=== PATIENT | male | born 1975 | race Caucasian/White ===

== ENCOUNTER 2020-08-06 09:40 | Emergency (ER) | payer OTHER, SELFPAY ==
[~2020-08-06] VITALS: Ht 182.9 cm; Wt 99.6 kg
[2020-08-06 09:40] VITALS: BP 133/97
[2020-08-06] MEDS ORDERED: LORA-622 PO (09:48)
[2020-08-06] MEDS ORDERED: HYDR-3490 PO (09:48)
[2020-08-06] MEDS ORDERED: AMLO1TAB25 PO (09:48)
--- NOTE | 2020-08-06 10:42 | REP ---
INDICATION: fell skiing COMPARISON: None. TECHNIQUE: AP, lateral, bilateral oblique and sunrise views. FINDINGS: Mild degenerative changes are appreciated. Lateral view suggests a suprapatellar effusion. No obvious acute fracture or dislocation identified. IMPRESSION: Mild tricompartmental arthritic changes. Possible suprapatellar effusion. No obvious acute fracture or dislocation. <Electronically signed by London Wade > 08/06/20 1038
== END 2020-08-06 11:26 | disposition home or self-care (01) ==
LOC: M ED 09:40
DX: S83.421A Sprain of lateral collateral ligament of right knee, initial encounter (principal); V00.321A Fall from snow-skis, initial encounter; Y92.828 Other wilderness area as the place of occurrence of the external cause; Y93.23 Activity, snow (alpine) (downhill) skiing, snowboarding, sledding, tobogganing and snow tubing; Y99.9 Unspecified external cause status; M25.461 Effusion, right knee; M17.11 Unilateral primary osteoarthritis, right knee; I10 Essential (primary) hypertension; Z79.899 Other long term (current) drug therapy

== ENCOUNTER → 2020-12-24 | Outpatient (CLI) | payer OTHER ==
[~2020-12-24] MED LIST: ACET-683 PO; AMLO1TAB25; AMLO1TAB25 PO; HYDR-3490; HYDR-3490 PO; LORA-622 PO; LORA-674
== END ==
LOC: M WUC 15:06 → MERGE 15:06
PROVIDERS: ATTEND Physician Assistant
DX: M54.12 Radiculopathy, cervical region (principal); M54.41 Lumbago with sciatica, right side

== ENCOUNTER → 2021-04-12 | Outpatient (CLI) | payer OTHER | LOC: MERGE 10:40 → M LABSMTC 11:02 | PROVIDERS: ATTEND Anesthesiology | DX: Z01.812 Encounter for preprocedural laboratory examination (principal); Z20.822 Contact with and (suspected) exposure to COVID-19 ==

== ENCOUNTER 2021-04-16 08:22 | Day surgery (SDC) | payer OTHER ==
[~2021-04-16] VITALS: Ht 185.4 cm; Wt 102.7 kg
[~2021-04-16 08:22] MED LIST changes: +LIDOCAINE 2% 100MG/5ML SDV (FOR ANES.) As Ordered ONE; +NS 1,000 ML IV ONE; +propofoL 200 MG/20 ML VIAL As Ordered ONE
--- OUTSIDE RECORDS SUMMARY | 2021-04-16 08:28 | CCD | Continuity of Care Document ---
Author Author Adonis DOOLEY RPA-C Organization Unknown Address [address] [facility], [address] [place] [address] Phone [phone] Care Team Providers Care Clam Dredger Name Role Phone Bashir Gallardo MD @ [facility] Int AUTM Problems Active Problems Provider Date Essential hypertension Tamica Bass ANGIE Dooley Onset: Social History Type Date Description Comments Sex Unknown ETOH Use Denies alcohol use Tobacco Use Start: Unknown Non Smoker Allergies, Adverse Reactions, Alerts Description No Known Drug Allergies Medications Active Medications SIG Qnty Indications Ordering Provide r Date Sutab [id number] Tablets take tablets as directed per doctor for bowel prep. 1kit Z12.11 Dayday corbin MD 03/03/[address] take 4 tabs by mouth prior to procedure per instructions. 4tabs Z12.11 Dayday El MD 03/03/2021 Hydrochlorothiazide 25mg Tablets 1tab qd Unknown Loratadine 10mg Capsules 1cap qd Unknown Amlodipine Besylate 10mg Tablets 1tab qd Unknown Immunizations Description No Information Available Vital Signs Date Vital Result Comment 03/03/2021 12:54pm BP Systolic 142 mmHg BP Diastolic 92 mmHg Height 73 inches 6'1" Weight 227.00 lb BMI (Body Mass Index) 29.9 kg/m2 [place] Body Weight 184 lb Weight 102.967 kg BSA (Body Surface Area) 2.27 m2 Results Description No Information Available Procedures Description No Information Available Medical Devices Description No Information Available Encounters Description No Information Available Assessments Date Code Description Provider 03/03/2021 Z12.11 Encounter for screening for jade gnant neoplasm of colon ANGIE Barbosa 03/03/2021 Z80.0 Family history of malignant neop lasm of digestive organs ANGIE Barbosa Plan of Treatment 03/03/2021 - Tamica Kali ANGIE Dooley* Z12.11 Encounter for screening for malignant neoplasm of colon * Z80.0 Family history of malignant neoplasm of digestive organs * * New Medication:* Sutab [id number] mg * Dulcolax 5 mg * New Orders:* Colonoscopy, Ordered: 03/03/21 * Comments:* Will arrange for colonoscopy. Reviewed risks and benefits of the procedure, as well as other options, with the patient. Bowel prep procedure was discussed with patient, as well as risks and side effects associated with the bowel prep. Patient verbalized understanding of all of the above and is in agreement to proceed. Patient will seek medical attention for any acute changes. Will monitor. * Follow up:* As scheduled, sooner if needed. Functional Status Description No Information Available Mental Status Description No Information Available Referrals Refer to Reason for Referral Status Appt Date Eloy Garrido M.D. COLO SCREENING Scheduled 02/17 [facility] [address] [facility], [address] [place] [address] [phone]
--- OUTSIDE RECORDS SUMMARY | 2021-04-16 08:28 | CCD | Continuity of Care Document ---
Author Author Adonis BOLAND P.A. Organization Unknown Address [address] [place] [address], [facility] [address] [place] [address] Phone [phone] Care Team Providers Care Payment Manager Name Role Phone Bashir Gallardo MD AUTM [phone] Dea Foreman AUTM [phone] Problems Description No Information Available Social History Type Date Description Comments Sex Unknown Allergies, Adverse Reactions, Alerts Description No Information Available Medications Active Medications SIG Qnty Indications Ordering Provide r Date Amlodipine Besylate 10mg Tablets Bashir Gallardo MD Hydrochlorothiazide 25mg Tablets Bashir Gallardo MD Loratadine 10mg Tablets Bashir Gallardo MD Immunizations Description No Information Available Vital Signs Date Vital Result Comment 08/07/2020 3:41pm Body Temperature 97.8 F Height 73 inches 6'1" Weight 220.00 lb BMI (Body Mass Index) 29.0 kg/m2 Results Description No Information Available Procedures Date Code Description Status 02/23/2021 27062 Office/Outpatient Established Lo w MDM 20-29 Min Completed 01/21/2021 10766 Physical Therapy Eval - Low Comp lexity Completed 01/05/2021 20769 Office/Outpatient Established Lo w MDM 20-29 Min Completed 11/24/2020 70439 Office/Outpatient Established SF MDM 10-19 Min Completed 11/19/2020 26435 Therapeutic Procedure, Each 15 M inutes Completed 11/19/2020 04852 Therapeutic Procedure, Each 15 M inutes Completed 11/11/2020 65613 Therapeutic Procedure, Each 15 M inutes Completed 11/11/2020 63973 Therapeutic Procedure, Each 15 M inutes Completed 11/11/2020 45979 Hot Or Cold Packs Completed 11/09/2020 04040 Therapeutic Procedure, Each 15 M inutes Completed 11/09/2020 37702 Therapeutic Procedure, Each 15 M inutes Completed 11/04/2020 69811 Therapeutic Procedure, Each 15 M inutes Completed 11/04/2020 62006 Therapeutic Procedure, Each 15 M inutes Completed 10/30/2020 65905 Therapeutic Procedure, Each 15 M inutes Completed 10/30/2020 74008 Therapeutic Procedure, Each 15 M inutes Completed 10/28/2020 39190 Therapeutic Procedure, Each 15 M inutes Completed 10/28/2020 32999 Therapeutic Procedure, Each 15 M inutes Completed 10/28/2020 98077 X-Ray Knee Complete W/Obliques & Tunnel And/Or Standing Views Completed 10/23/2020 46752 Therapeutic Procedure, Each 15 M inutes Completed 10/23/2020 69049 Therapeutic Procedure, Each 15 M inutes Completed 10/19/2020 60206 Therapeutic Procedure, Each 15 M inutes Completed 10/19/2020 47181 Therapeutic Procedure, Each 15 M inutes Completed 10/15/2020 49679 Therapeutic Procedure, Each 15 M inutes Completed 10/15/2020 65647 Therapeutic Procedure, Each 15 M inutes Completed 10/15/2020 46937 Hot Or Cold Packs Completed 10/12/2020 83268 Therapeutic Procedure, Each 15 M inutes Completed 10/12/2020 03567 Therapeutic Procedure, Each 15 M inutes Completed 10/08/2020 06493 Therapeutic Procedure, Each 15 M inutes Completed 10/08/2020 24973 Therapeutic Procedure, Each 15 M inutes Completed 10/08/2020 62824 Hot Or Cold Packs Completed 10/06/2020 41135 Therapeutic Procedure, Each 15 M inutes Completed 10/06/2020 09226 Therapeutic Procedure, Each 15 M inutes Completed 10/01/2020 85065 Therapeutic Procedure, Each 15 M inutes Completed 10/01/2020 95521 Therapeutic Procedure, Each 15 M inutes Completed 10/01/2020 45265 Hot Or Cold Packs Completed 09/30/2020 88275 X-Ray Knee Complete W/Obliques & Tunnel And/Or Standing Views Completed 09/28/2020 73454 Therapeutic Procedure, Each 15 M inutes Completed 09/28/2020 48786 Hot Or Cold Packs Completed 09/25/2020 24040 Therapeutic Procedure, Each 15 M inutes Completed 09/23/2020 48611 Therapeutic Procedure, Each 15 M inutes Completed 09/23/2020 02008 Hot Or Cold Packs Completed 09/16/2020 90699 Physical Therapy Eval - Low Comp lexity Completed Medical Devices Description No Information Available Encounters Type Date Location Provider Dx Diagnosis Office Visit 02/23/2021 3:00p Daljit Boland P.A. M51.36 Other intervertebral disc degeneration, lumbar region M50.30 Other cervical disc degenera tion, unsp cervical region Office Visit 01/05/2021 2:30p Daljit Boland P.A. M51.36 Other intervertebral disc degeneration, lumbar region M54.2 Cervicalgia Office [place] 11[place]24[place] Nond[place] fx of lateral condyle of r tibia, 7thD Office Visit 10/28/2020 9:[place] S[place].124D Nondisp fx of lateral condyle of r tibia, 7thD Office Visit 09/30/2020 8:30a [place] ZACARIAS Guido S82.124D Nondisp fx of lateral condyle of r tibia, 7thD Assessments Date Code Description Provider 02/23/2021 M51.36 Other intervertebral disc degene ration, lumbar region Rick Boland, P.A. 02/23/2021 M50.30 Other cervical disc degeneration , unspecified cervical region Rick Boland, P.A. 01/21/2021 M51.36 Other intervertebral disc degene ration, lumbar region Leda Jones, [facility] 01/21/2021 M54.2 Cervicalgia Leda Jones , MSPT 01/05/2021 M51.36 Other intervertebral disc degene ration, lumbar region Rick Boland, P.A. 01/05/2021 M54.2 Cervicalgia Rick licona P.A. 11/27/2020 S82.124D Nondisplaced fractur e of lateral condyle of right tibia, subsequent encounter for closed fracture with routine healing Leda Jones, LINDAT 11/24/2020 S82.124D Nondisplaced fractur e of lateral condyle of right tibia, subsequent encounter for closed fracture with routine healing Theodore Aceves, ZACARIAS 11/19/2020 S82.124D Nondisplaced fractur e of lateral condyle of right tibia, subsequent encounter for closed fracture with routine healing Danamarie Ortolano, MARINE DIVER 11/11/2020 S82.124D Nondisplaced fractur e of lateral condyle of right tibia, subsequent encounter for closed fracture with routine healing Ava Brand, MARINE DIVER 11/09/2020 S82.124D Nondisplaced fractur e of lateral condyle of right tibia, subsequent encounter for closed fracture with routine healing Ava Brand, MARINE DIVER 11/04/2020 S82.124D Nondisplaced fractur e of lateral condyle of right tibia, subsequent encounter for closed fracture with routine healing Danamarie Ortolano, MARINE DIVER 10/30/2020 S82.124D Nondisplaced fractur e of lateral condyle of right tibia, subsequent encounter for closed fracture with routine healing Danamarie Ortolano, MARINE DIVER 10/28/2020 S82.124D Nondisplaced fractur e of lateral condyle of right tibia, subsequent encounter for closed fracture with routine healing Clary Scee P.T.A. 10/28/2020 S82.124D Nondisplaced fractur e of lateral condyle of right tibia, subsequent encounter for closed fracture with routine healing Theodore Aceves, ZACARIAS 10/23/2020 S82.124D Nondisplaced fractur e of lateral condyle of right tibia, subsequent encounter for closed fracture with routine healing Ava Brand, MARINE DIVER 10/19/2020 S82.124D Nondisplaced fractur e of lateral condyle of right tibia, subsequent encounter for closed fracture with routine healing Clary Scee P.T.A. 10/15/2020 S82.124D Nondisplaced fractur e of lateral condyle of right tibia, subsequent encounter for closed fracture with routine healing Clary Scee P.T.A. 10/12/2020 S82.124D Nondisplaced fractur e of lateral condyle of right tibia, subsequent encounter for closed fracture with routine healing Clary Scee P.T.A. 10/08/2020 S82.124D Nondisplaced fractur e of lateral condyle of right tibia, subsequent encounter for closed fracture with routine healing Clary Scee P.T.A. 10/06/2020 S82.124D Nondisplaced fractur e of lateral condyle of right tibia, subsequent encounter for closed fracture with routine healing Clary Scee P.T.A. 10/01/2020 S82.124D Nondisplaced fractur e of lateral condyle of right tibia, subsequent encounter for closed fracture with routine healing Leda Jones, HAWA 09/30/2020 S82.124D Nondisplaced fractur e of lateral condyle of right tibia, subsequent encounter for closed fracture with routine healing ZACARIAS Guido 09/30/2020 S82.124D Nondisplaced fractur e of lateral condyle of right tibia, subsequent encounter for closed fracture with routine healing ZACARIAS Guido 09/28/2020 S82.124D Nondisplaced fractur e of lateral condyle of right tibia, subsequent encounter for closed fracture with routine healing Clary Scee P.T.A. 09/25/2020 S82.124D Nondisplaced fractur e of lateral condyle of right tibia, subsequent encounter for closed fracture with routine healing Francesca Nayka, MICHELE 09/23/2020 S82.124D Nondisplaced fractur e of lateral condyle of right tibia, subsequent encounter for closed fracture with routine healing Clary Scee P.T.A. 09/16/2020 S82.124D Nondisplaced fractur e of lateral condyle of right tibia, subsequent encounter for closed fracture with routine healing HAWA Ugalde Plan of Treatment Future Appointment(s):* 04/07/2021 2:15 pm - Shane Rodas at [place] Functional Status Description No Information Available Mental Status Description No Information Available Referrals Refer to Dr Reason for Referral Status Appt Date Mcelheran, Rick K, PA Physical Therapy Lumbar Neck , per Chiquita gleason auth req and no pre determination recommended. pt is allowed 80 visits per calendar year and has used 0,$25 copay, patient is going to [facility], passed to PT dept. Created [address] [place] [address] [phone] Rick Boland PA MRI APPROVED PER KAYLEEN Hodge FOR MRI CERVICAL (02729) AND LUMBAR (85470) SPINE TO IVETTE THOMAS Created [facility] [place] [address] [phone] Theodore Aceves I, Pac DME PER BILL AT R NO AUTH REQUIRED FOR SHORT RUNNER (L1833) AND COVERED AT 100% TO GINI ROTH CALL REF #[id number] Created [facility] [address] [address] [phone] Theodore Aceves I, Pac PT BASED ON MED. [facility] AFTER 25TH VISITS NEEDS MEDICAL DOCUMENTATION AND THEY HAVE A $25 COPAY TO PT DEPT. NT Created [facility] [address] [address] [phone]
--- OUTSIDE RECORDS SUMMARY | 2021-04-16 08:28 | CCD | Continuity of Care Document ---
Author Author Adonis DOOLEY RPA-C Organization Unknown Address [address] [facility] [facility], [address] [place] [address] Phone [phone] Care Team Providers Care Transition Rn Name Role Phone Bashir Gallardo MD @ [facility] Int AUTM Problems Active Problems Provider Date Essential hypertension Tamica Bass ANGIE Dooley Onset: Social History Type Date Description Comments Sex Unknown ETOH Use Denies alcohol use Tobacco Use Start: Unknown Non Smoker Allergies, Adverse Reactions, Alerts Description No Known Drug Allergies Medications Active Medications SIG Qnty Indications Ordering Provide r Date Sutab [id number] Tablets take tablets as directed per doctor [...] lb BMI (Body Mass Index) 29.9 kg/m2 [place] Body Weight 184 lb Weight 102.967 kg [...] digestive organs * * New Medication:* Sutab 7518-750-552 mg * Dulcolax 5 mg * New [...] Eloy Garrido M.D. COLO SCREENING Scheduled 02/17 [facility] [address], [address] [place] [address] [phone]
--- OUTSIDE RECORDS SUMMARY | 2021-04-16 08:28 | CCD | Continuity of Care Document ---
Author Author Adonis BOLAND P.A. Organization Unknown Address [address] [place] [address], [facility] [address] [place] [address] Phone [phone] Care Team Providers Care Retirement Sales Consultant Name Role Phone Bashir Gallardo MD AUTM [phone] Dea Foreman AUTM [phone] Problems Description No Information Available Social History [...] Available Procedures Date Code Description Status 02/23/2021 50298 Phone Evaluation/Management Phys ician 11-20 Mins Completed 01/21/2021 12711 Physical Therapy Eval - Low Comp lexity Completed 01/05/2021 37759 Office/Outpatient Established Lo w MDM 20-29 Min Completed 11/24/2020 12305 Office/Outpatient Established SF MDM 10-19 Min Completed 11/19/2020 94083 Therapeutic Procedure, Each 15 M inutes Completed 11/19/2020 90849 Therapeutic Procedure, Each 15 M inutes Completed 11/11/2020 46143 Therapeutic Procedure, Each 15 M inutes Completed 11/11/2020 51893 Therapeutic Procedure, Each 15 M inutes Completed 11/11/2020 68249 Hot Or Cold Packs Completed 11/09/2020 17925 Therapeutic Procedure, Each 15 M inutes Completed 11/09/2020 44337 Therapeutic Procedure, Each 15 M inutes Completed 11/04/2020 11279 Therapeutic Procedure, Each 15 M inutes Completed 11/04/2020 20559 Therapeutic Procedure, Each 15 M inutes Completed 10/30/2020 41738 Therapeutic Procedure, Each 15 M inutes Completed 10/30/2020 40293 Therapeutic Procedure, Each 15 M inutes Completed 10/28/2020 89302 Therapeutic Procedure, Each 15 M inutes Completed 10/28/2020 14341 Therapeutic Procedure, Each 15 M inutes Completed 10/28/2020 73527 X-Ray Knee Complete W/Obliques & Tunnel And/Or Standing Views Completed 10/23/2020 47714 Therapeutic Procedure, Each 15 M inutes Completed 10/23/2020 89447 Therapeutic Procedure, Each 15 M inutes Completed 10/19/2020 41696 Therapeutic Procedure, Each 15 M inutes Completed 10/19/2020 63003 Therapeutic Procedure, Each 15 M inutes Completed 10/15/2020 11779 Therapeutic Procedure, Each 15 M inutes Completed 10/15/2020 27374 Therapeutic Procedure, Each 15 M inutes Completed 10/15/2020 08151 Hot Or Cold Packs Completed 10/12/2020 03623 Therapeutic Procedure, Each 15 M inutes Completed 10/12/2020 16332 Therapeutic Procedure, Each 15 M inutes Completed 10/08/2020 35563 Therapeutic Procedure, Each 15 M inutes Completed 10/08/2020 69153 Therapeutic Procedure, Each 15 M inutes Completed 10/08/2020 50500 Hot Or Cold Packs Completed 10/06/2020 21278 Therapeutic Procedure, Each 15 M inutes Completed 10/06/2020 30039 Therapeutic Procedure, Each 15 M inutes Completed 10/01/2020 86445 Therapeutic Procedure, Each 15 M inutes Completed 10/01/2020 64824 Hot Or Cold Packs Completed 10/01/2020 05677 Therapeutic Procedure, Each 15 M inutes Completed 09/30/2020 55021 X-Ray Knee Complete W/Obliques & Tunnel And/Or Standing Views Completed 09/28/2020 80940 Therapeutic Procedure, Each 15 M inutes Completed 09/28/2020 55440 Hot Or Cold Packs Completed 09/25/2020 95128 Therapeutic Procedure, Each 15 M inutes Completed 09/23/2020 67293 Therapeutic Procedure, Each 15 M inutes Completed 09/23/2020 22493 Hot Or Cold Packs Completed 09/16/2020 82390 Physical Therapy Eval - Low Comp lexity Completed 09/02/2020 50771 X-Ray Knee Complete W/Obliques & Tunnel And/Or Standing Views Completed Medical Devices Description No Information Available Encounters Type Date Location Provider Dx Diagnosis Office Visit 02/23/2021 3:00p Daljit Boland P.A. M51.36 Other intervertebral disc degeneration, lumbar region M50.30 Other cervical disc degenera tion, unsp cervical region Office Visit 01/05/2021 2:30p Daljit Boland P.A. M51.36 Other intervertebral disc degeneration, lumbar region M54.2 Cervicalgia Office Visit 11/24/2020 2:[place]p [place] S82.124D Nondisp fx of lateral condyle of r tibia, 7thD Office Visit 10/28/2020 9:15a [place] S82.124D Nondisp fx of lateral condyle of r tibia, 7thD Office Visit 09/30/2020 8:30a [place] S82.124D Nondisp fx of lateral condyle of r tibia, 7thD Office Visit 09/02/2020 8:45a [place] S82.124D Nondisp fx of lateral condyle of r tibia, 7thD Assessments Date Code Description Provider 02/23/2021 M51.36 Other intervertebral disc degene ration, lumbar region Rick Boland P.A. 02/23/2021 M50.30 Other cervical disc degeneration , unspecified cervical region Kristopher RodasA. 01/21/2021 M51.36 Other intervertebral disc degene ration, lumbar region Leda Jones, [facility] 01/21/2021 M54.2 Cervicalgia Leda Jones , MSPT 01/05/2021 M51.36 Other intervertebral disc degene ration, lumbar region Rick Boland, P.A. 01/05/2021 M54.2 Cervicalgia Rick licona, P.A. 11/27/2020 S82.124D Nondisplaced fractur e of lateral condyle of right tibia, subsequent encounter for closed fracture with routine healing Leda Jones, MSPT 11/24/2020 S82.124D Nondisplaced fractur e of lateral condyle of right tibia, subsequent encounter for closed fracture with routine healing Theodore Aceves, PA 11/19/2020 S82.124D Nondisplaced fractur e of lateral condyle of right tibia, subsequent encounter for closed fracture with routine healing Danamarie Ortolano, MEDICAL SALES SPECIALIST 11/11/2020 S82.124D Nondisplaced fractur e of lateral condyle of right tibia, subsequent encounter for closed fracture with routine healing Ava Brand, MEDICAL SALES SPECIALIST 11/09/2020 S82.124D Nondisplaced fractur e of lateral condyle of right tibia, subsequent encounter for closed fracture with routine healing Ava Brand, MEDICAL SALES SPECIALIST 11/04/2020 S82.124D Nondisplaced fractur e of lateral condyle of right tibia, subsequent encounter for closed fracture with routine healing Danamarie Ortolano, MEDICAL SALES SPECIALIST 10/30/2020 S82.124D Nondisplaced fractur e of lateral condyle of right tibia, subsequent encounter for closed fracture with routine healing Danamarie Ortolano, MEDICAL SALES SPECIALIST 10/28/2020 S82.124D Nondisplaced fractur e of lateral condyle of right tibia, subsequent encounter for closed fracture with routine healing Clary Boone P.T.A. 10/28/2020 S82.124D Nondisplaced fractur e of lateral condyle of right tibia, subsequent encounter for closed fracture with routine healing Theodore Aceves, PA 10/23/2020 S82.124D Nondisplaced fractur e of lateral condyle of right tibia, subsequent encounter for closed fracture with routine healing Ava Brand, MEDICAL SALES SPECIALIST 10/19/2020 S82.124D Nondisplaced fractur e of lateral [...] closed fracture with routine healing [facility], [facility] 09/30/2020 S82.124D Nondisplaced fractur e of lateral condyle of right tibia, subsequent encounter for closed fracture with routine healing ZACARIAS Guido 09/30/2020 S82.124D Nondisplaced fractur e of lateral condyle of right tibia, subsequent encounter for closed fracture with routine healing Theodore Aceves, ZACARIAS 09/28/2020 S82.124D Nondisplaced fractur e of lateral condyle of right tibia, subsequent encounter for closed fracture with routine healing Clary Scee P.T.A. 09/25/2020 S82.124D Nondisplaced fractur e of lateral condyle of right tibia, subsequent encounter for closed fracture with routine healing Francesca Nayak, [facility] 09/23/2020 S82.124D Nondisplaced fractur e of lateral condyle of right tibia, subsequent encounter for closed fracture with routine healing Clary Scee P.T.A. 09/16/2020 S82.124D Nondisplaced fractur e of lateral condyle of right tibia, subsequent encounter for closed fracture with routine healing Leda Jones, MSPT 09/02/2020 S82.124D Nondisplaced fractur e of lateral condyle of right tibia, subsequent encounter for closed fracture with routine healing ZACARIAS Guido Plan of Treatment Future Appointment(s):* 04/07/2021 2:15 pm - Shane Rodas at [place] Functional Status Description No Information Available Mental Status Description No Information Available Referrals Refer to Dr Reason for Referral Status Appt Date Rick Boland PA Physical Therapy Lumbar Neck , per Chiquita Hopper no auth req and no pre determination recommended. pt is allowed 80 visits per calendar year and has used 0,$25 copay, patient is going to [facility] [place], passed to PT dept. Created [facility] [place] [address] [phone] Rick Boland PA MRI APPROVED PER KAYLEEN ECasye FOR MRI CERVICAL (37700) AND LUMBAR (23959) SPINE TO IVETTE THOMAS Created [facility] [place] [address] [phone] Theodore Aceves I, Pac DME PER BILL AT R NO AUTH REQUIRED FOR SHORT RUNNER (L1833) AND COVERED AT 100% TO GINI ROTH CALL REF #[id number] Created [facility] [address] [address] [phone] Theodore Aceves I, Pac [facility] MEDICAL DOCUMENTATION AND THEY HAVE A $25 COPAY TO PT DEPT. NT Created [facility] [address] [address] [phone]
--- OUTSIDE RECORDS SUMMARY | 2021-04-16 08:29 | CCD | Continuity of Care Document ---
Author Author Adonis Gallrado MD Organization Unknown Address [address] [place] [address] Phone [phone] Care Team Providers Care Machine Load Clerk Name Role Phone Bashir Gallardo JR, MD AUT Unavailable Problems Description No Information Available Social History Type Date Description Comments Sex Unknown ETOH Use Occasionally consumes wine Tobacco Use Start: Unknown Patient has never smoked Allergies, Adverse Reactions, Alerts Description No Known Drug Allergies Medications Active Medications SIG Qnty Indications Ordering Provide r Date Fluticasone Propionate Nasal [place] 24- H our 50mcg/Act Suspension 2 puffs in each nostril daily 1units J01.9 0 DANK Mcghee 06/06/2018 Amlodipine Besylate 10mg Tablets 1 by mouth every day 90tabs I10 Giovani Joshua M.D. 06/07/2017 Loratadine 10mg Tablets 10mg once daily, as needed 90tabs J30.9 Giovani Joshua M.D. 10/16/2015 Hydrochlorothiazide 25mg Tablets 1 by mouth every day 90tabs I10 Giovani Joshua M.D. 10/09/2015 No OTC Meds Bashir Gallardo MD Immunizations Description No Information Available Vital Signs Date Vital Result Comment 01/20/2021 8:39am BP Systolic 110 mmHg BP Diastolic 68 mmHg Heart Rate 70 /min Height 71.50 inches 5'11.50" Weight 224.00 lb BMI (Body Mass Index) 30.8 kg/m2 07/15/2020 9:30am BP Systolic 110 mmHg BP Diastolic 72 mmHg Heart Rate 68 /min Height 71.50 inches 5'11.50" Weight 217.00 lb BMI (Body Mass Index) 29.8 kg/m2 Results Test Acquired Date Facility Test Result H/L Range Note Complete Blood Count 01/20/2021 [facility] Functional Support Analyst: [place] [address] [phone] WBC 4.5 x10*3/UL 4.1 - 10.9 RBC 4.89 x10*6/UL 4.20 - 6.30 Hemoglobin 15.0 g/dL 12.0 - 18.0 Hematocrit 43.7 % 37.0 - 51.0 MCV 89.3 fL 80.0 - 97.0 MCH 30.8 pg 26.0 - 32.0 MCHC 34.4 g/dL 31.0 - 38.0 RDW 13.0 % 11.6 - 13.7 PLT 307 x10*3/UL 140 - 440 MPV 8.2 FL 7.8 - 11.0 Lymph % 34.1 % 10.0 - 58.5 Mid % 6.5 % 1.7 - 9.3 Neut % 59.4 % 37.0 - 92.0 Lymph # 1.5 x10*3/UL 0.6 - 4.1 Mid # 0.3 x10*3/UL 0.1 - 0.6 Neut # 2.7 x10*3/UL 2.0 - 7.8 Comprehensive Chem Profile 01/20/2021 [facility] Functional Support Analyst: [place] [address] [phone] Glucose 96 mg/dL 74 - 99 1 BUN 20 mg/dL High 7 - 18 Creatinine 1.2 mg/dL 0.6 - 1.3 Sodium 140 mEq/L 136 - 145 Potassium 4.0 mEq/L 3.5 - 5.1 Chloride 102 mEq/L 98 - 107 Carbon Dioxide 31 mEq/L 21 - 32 Calcium 9.5 mg/dL 8.5 - 10.1 Alk. Phosphatase 61 mg/dL 46 - 116 Total Bilirubin 0.5 mg/dL 0.2 - 1.0 Ast (Sgot) 27 U/L 15 - 37 Alt (SGPT) 50 U/L 12 - 78 Albumin 4.0 g/dL 3.4 - 5.0 Total Protein 7.3 g/dL 6.4 - 8.2 A/G Ratio 1.21 CALC 1.00 - 1.90 GFR >= 60 mL/min >60 GFR >= 60 mL/min >60 2 Lipid Profile 01/20/2021 [facility] , Functional Support Analyst: [place] [address] [phone] Cholesterol 230 mg/dL High 131 - 200 Triglycerides 84 mg/dL 30 - 150 HDL Cholesterol 61 mg/dL High 35 - 60 LDL (Calculated) 152 CALC 50 - 159 1 100-125 mg/dL PRE-DIABET ES/FASTING >126 mg/dL DIABETES/FASTING 2 CHRONIC KIDNEY DISEASE STAGI NG PER NKF STAGE I & II GFR >= 60 NORMAL TO MILDLY DECREASED STAGE III GFR 30-59 MODERATELY DECREASED STAGE IV GFR 15-29 SEVERELY DECREASED STAGE V GFR <15 VERY LITTLE GFR LEFT ESRD GFR <[address] MAGISTRATE Procedures Description No Information Available Medical Devices Description No Information Available Encounters Description No Information Available Assessments Date Code Description Provider 01/20/2021 R73.09 Other abnormal glucose Bashir Gallardo MD 01/20/2021 I10 Essential (primary) hypertension Bashir Gallardo MD 01/20/2021 E78.00 Pure hypercholesterolemia, unspe cified Bashir Gallardo MD 01/20/2021 Z80.0 Family history of malignant neop lasm of digestive organs Bashir Gallardo MD 01/20/2021 U07.1 Covid-19 Bashir duffy MD 01/20/2021 M54.5 Low back pain Bashir duffy MD Plan of Treatment Future Appointment(s):* 07/28/2021 9:00 am - Bashir Gallardo MD at [facility] 01/20/2021 - Bashir Gallardo MD* R73.09 Other abnormal glucose * I10 Essential (primary) hypertension* Comments:* Hypertension at [facility]-8 guidelines * E78.00 Pure hypercholesterolemia, unspecified * Z80.0 Family history of malignant neoplasm of digestive organs * U07.1 Covid-19 * M54.5 Low back pain Functional Status Description No Information Available Mental Status Description No Information Available Referrals Description No Information Available
--- OUTSIDE RECORDS SUMMARY | 2021-04-16 08:29 | CCD | Continuity of Care Document ---
Author Author Adonis Gallardo MD Organization Unknown Address [address] [place] [address] Phone [phone] Care Team Providers Care Rail Doweling Machine Operator Name Role Phone Bashir Gallardo JR, MD AUTM Unavailable Problems Description No Information Available Social History Type Date Description Comments Sex Unknown ETOH Use Occasionally consumes wine Tobacco Use Start: Unknown Patient has never smoked Allergies, Adverse Reactions, Alerts Description No Known Drug Allergies Medications Active Medications SIG Qnty Indications Ordering Provide r Date Fluticasone Propionate Nasal [place] 24- H our 50mcg/Act Suspension 2 puffs [...] BMI (Body Mass Index) 29.8 kg/m2 Results Description No Information Available Procedures Description No Information Available Medical Devices Description No Information Available Encounters Description No Information Available Assessments Description No Information Available Plan of Treatment No Information Available Functional Status Description No Information Available Mental Status Description No Information Available Referrals Description No Information Available
--- OUTSIDE RECORDS SUMMARY | 2021-04-16 08:29 | CCD | Continuity of Care Document ---
Author Author Adonis [facility] Organization Unknown Address [address] [place] [address], [address] [place] [address] Phone [phone] Care Team Providers Care Charge Loader Name Role Phone Bashir Gallardo MD AUTM [phone] Dea Foreman AUTM [phone] Problems Description No Information Available Social History [...] Information Available Procedures Date Code Description Status 01/21/2021 17953 Physical Therapy Eval - Low Comp lexity Completed 01/05/2021 48358 Office/Outpatient Established Lo w MDM 20-29 Min Completed 11/24/2020 65598 Office/Outpatient Established SF MDM 10-19 Min Completed 11/19/2020 95769 Therapeutic Procedure, Each 15 M inutes Completed 11/19/2020 60137 Therapeutic Procedure, Each 15 M inutes Completed 11/11/2020 15601 Therapeutic Procedure, Each 15 M inutes Completed 11/11/2020 85673 Therapeutic Procedure, Each 15 M inutes Completed 11/11/2020 73600 Hot Or Cold Packs Completed 11/09/2020 65833 Therapeutic Procedure, Each 15 M inutes Completed 11/09/2020 70791 Therapeutic Procedure, Each 15 M inutes Completed 11/04/2020 75192 Therapeutic Procedure, Each 15 M inutes Completed 11/04/2020 53226 Therapeutic Procedure, Each 15 M inutes Completed 10/30/2020 39002 Therapeutic Procedure, Each 15 M inutes Completed 10/30/2020 94492 Therapeutic Procedure, Each 15 M inutes Completed 10/28/2020 47610 Therapeutic Procedure, Each 15 M inutes Completed 10/28/2020 85245 Therapeutic Procedure, Each 15 M inutes Completed 10/28/2020 01307 X-Ray Knee Complete W/Obliques & Tunnel And/Or Standing Views Completed 10/23/2020 46984 Therapeutic Procedure, Each 15 M inutes Completed 10/23/2020 19882 Therapeutic Procedure, Each 15 M inutes Completed 10/19/2020 90854 Therapeutic Procedure, Each 15 M inutes Completed 10/19/2020 11579 Therapeutic Procedure, Each 15 M inutes Completed 10/15/2020 04911 Hot Or Cold Packs Completed 10/15/2020 35814 Therapeutic Procedure, Each 15 M inutes Completed 10/15/2020 41705 Therapeutic Procedure, Each 15 M inutes Completed 10/12/2020 57354 Therapeutic Procedure, Each 15 M inutes Completed 10/12/2020 40393 Therapeutic Procedure, Each 15 M inutes Completed 10/08/2020 87663 Therapeutic Procedure, Each 15 M inutes Completed 10/08/2020 91870 Therapeutic Procedure, Each 15 M inutes Completed 10/08/2020 18766 Hot Or Cold Packs Completed 10/06/2020 70166 Therapeutic Procedure, Each 15 M inutes Completed 10/06/2020 91482 Therapeutic Procedure, Each 15 M inutes Completed 10/01/2020 96707 Therapeutic Procedure, Each 15 M inutes Completed 10/01/2020 78859 Therapeutic Procedure, Each 15 M inutes Completed 10/01/2020 12192 Hot Or Cold Packs Completed 09/30/2020 74938 X-Ray Knee Complete W/Obliques & Tunnel And/Or Standing Views Completed 09/28/2020 02920 Therapeutic Procedure, Each 15 M inutes Completed 09/28/2020 62282 Hot Or Cold Packs Completed 09/25/2020 03779 Therapeutic Procedure, Each 15 M inutes Completed 09/23/2020 10576 Therapeutic Procedure, Each 15 M inutes Completed 09/23/2020 63092 Hot Or Cold Packs Completed 09/16/2020 10232 Physical Therapy Eval - Low Comp lexity Completed 09/02/2020 60870 X-Ray Knee Complete W/Obliques & Tunnel And/Or Standing Views Completed 08/19/2020 38178 Office/Outpatient Established Lo w MDM 20-29 Min Completed 08/19/2020 07763 X-Ray Knee Complete W/Obliques & Tunnel And/Or Standing Views Completed 08/19/2020 41051 FX Tibia Proximal W/O Manipulati on Completed Medical Devices Description No Information Available Encounters Type Date Location Provider Dx Diagnosis Office Visit 01/05/2021 2:30p Daljit Boland, P.A. M51.36 Other intervertebral disc degeneration, lumbar region M54.2 Cervicalgia Office Visit 11/24/2020 2:40p [place] ZACARIAS Guido S82.124D Nondisp fx of lateral condyle of r tibia, 7thD Office Visit 10/28/2020 9:15a [place] ZACARIAS Guido S82.124D Nondisp fx of lateral condyle of r tibia, 7thD Office Visit 09/30/2020 8:30a [place] S82.124D Nondisp fx of lateral condyle of r tibia, 7thD Office Visit 09/02/2020 8:45a [place] S82.124D Nondisp fx of lateral condyle of r tibia, 7thD Office Visit 08/19/2020 1:15p [place] ZACARIAS Guido S82.124D Nondisp fx of lateral condyle of r tibia, 7thD Assessments Date Code Description Provider 01/21/2021 M51.36 Other intervertebral disc degene ration, lumbar region Leda Jones, MSPT 01/21/2021 M54.2 Cervicalgia Leda Jones , MSPT [...] closed fracture with routine healing Danamarie Ortolano, MUNICIPAL BOND TRADER 11/11/2020 S82.124D Nondisplaced fractur e of lateral condyle of right tibia, subsequent encounter for closed fracture with routine healing Ava Brand, MUNICIPAL BOND TRADER 11/09/2020 S82.124D Nondisplaced fractur e of lateral condyle of right tibia, subsequent encounter for closed fracture with routine healing Ava Brand, MUNICIPAL BOND TRADER 11/04/2020 S82.124D Nondisplaced fractur e of lateral condyle of right tibia, subsequent encounter for closed fracture with routine healing Danamarie Ortolano, MUNICIPAL BOND TRADER 10/30/2020 S82.124D Nondisplaced fractur e of lateral condyle of right tibia, subsequent encounter for closed fracture with routine healing Danamarie Ortolano, MUNICIPAL BOND TRADER 10/28/2020 S82.124D Nondisplaced fractur e of lateral [...] closed fracture with routine healing Ava Brand, MUNICIPAL BOND TRADER 10/19/2020 S82.124D Nondisplaced fractur e of lateral [...] closed fracture with routine healing Leda Jones, RUSTT 09/30/2020 S82.124D Nondisplaced fractur e of lateral [...] closed fracture with routine healing Francesca Nayak, MUNICIPAL BOND TRADER 09/23/2020 S82.124D Nondisplaced fractur e of lateral [...] closed fracture with routine healing ZACARIAS Guido 08/19/2020 S82.124D Nondisplaced fractur e of lateral condyle of right tibia, subsequent encounter for closed fracture with routine healing ZACARIAS Guido Plan of Treatment Future Appointment(s):* 02/23/2021 3:00 pm - Shane Rodas at [place] Functional Status Description No Information Available Mental Status Description No Information Available Referrals Refer to Dr Reason for Referral Status Appt Date Rick Boland PA Physical Therapy Lumbar Neck , per Chiquita Hopper no auth req and no pre determination recommended. pt is allowed 80 visits per calendar year and has used 0,$25 copay, patient is going to [facility], passed to PT dept. Created [facility] [place] [place] [address] [phone] Rick Boland PA MRI APPROVED PER KAYLEEN ECasey FOR MRI CERVICAL (06056) AND LUMBAR (52791) SPINE TO IVETTE THOMAS Created [facility] [place] [id number] [phone] Theodore Aceves I, Pac DME PER BILL AT [facility] NO AUTH REQUIRED FOR SHORT RUNNER (L1833) AND COVERED AT 100% TO GINI ROTH CALL REF #[id number] Created [facility] [address] [address] [phone] Theodore Aceves I, Pac PT BASED ON MED. [facility] AFTER 25TH VISITS NEEDS MEDICAL DOCUMENTATION AND THEY HAVE A $25 COPAY TO PT DEPT. NT Created [facility] [address] [address] [phone]
--- OUTSIDE RECORDS SUMMARY | 2021-04-16 08:29 | CCD | Continuity of Care Document ---
Author Author Adonis Gallardo MD Organization Unknown Address [address] [place] [address] Phone [phone] Care Team Providers Care Regional Owner Operator Truck Driver Name Role Phone Bashir Gallardo JR, MD AUTM Unavailable Problems Description No Information Available Social History Type Date Description Comments Sex Unknown ETOH Use Occasionally consumes wine Tobacco Use Start: Unknown Patient has never smoked Allergies, Adverse Reactions, Alerts Description No Known Drug Allergies Medications Active Medications SIG Qnty Indications Ordering Provide r Date Fluticasone Propionate Nasal [place] 24- H our 50mcg/Act Suspension 2 puffs [...]
--- OUTSIDE RECORDS SUMMARY | 2021-04-16 08:29 | CCD | Continuity of Care Document ---
Author Author Adonis Gallardo MD Organization Unknown Address [address] [place] [address] Phone [phone] Care Team Providers Care Refrigeration Person Name Role Phone Bashir Gallardo JR, MD AUTM Unavailable Problems Description No Information Available Social History Type Date Description Comments Sex Unknown ETOH Use Occasionally consumes wine Tobacco Use Start: Unknown Patient has never smoked Allergies, Adverse Reactions, Alerts Description No Known Drug Allergies Medications Active Medications SIG Qnty Indications Ordering Provide r Date Fluticasone Propionate Nasal [place] 24- H our 50mcg/Act Suspension 2 puffs [...] H/L Range Note Complete Blood Count 01/20/2021 [facility] Varnish Remover: [place] [address] [phone] WBC 4.5 x10*3/UL 4.1 - 10.9 RBC [...] 2.0 - 7.8 Comprehensive Chem Profile 01/20/2021 [facility] Varnish Remover: [place] [address] [phone] Glucose 96 mg/dL 74 - 99 1 [...] 60 mL/min >60 2 Lipid Profile 01/20/2021 [facility] , Varnish Remover: [place] [address] [phone] Cholesterol 230 mg/dL High 131 - 200 [...] LITTLE GFR LEFT ESRD GFR <15 ON STEAM CONDITIONER OPERATOR Procedures Date Code Description Status 01/20/2021 58387 Office/Outpatient Established Mo d MDM 30-39 Min Completed Medical Devices Description No Information Available Encounters Type Date Location Provider Dx Diagnosis Office Visit 01/20/2021 8:40a [facility] Bashir Gallardo MD R73.09 Other abnormal glucose I10 Essential (primary) hyperten isaiah E78.00 Pure hypercholesterolemia, u nspecified Z80.0 Family history of malignant neoplasm of digestive organs M54.5 Low back pain Z86.16 Personal history of Covid-19 Assessments Date Code Description Provider 01/20/2021 R73.09 Other abnormal glucose Bashir Gallardo MD 01/20/2021 I10 Essential (primary) hypertension Bashir Gallardo MD 01/20/2021 E78.00 Pure hypercholesterolemia, unspe cified Bashir Gallardo MD 01/20/2021 Z80.0 Family history of malignant neop lasm of digestive organs Bashir Gallardo MD 01/20/2021 M54.5 Low back pain Bashir duffy MD 01/20/2021 Z86.16 Personal history of Covid-19 Col larissa Gallardo MD Plan of Treatment Future Appointment(s):* 05/26/2021 8:10 am - [facility] at [facility] * 07/28/2021 9:00 am - Bashir Gallardo MD at [facility] 01/20/2021 - Bashir Gallardo MD* R73.09 Other abnormal glucose * I10 Essential (primary) hypertension* Comments:* Hypertension at [facility]-8 guidelines * E78.00 Pure hypercholesterolemia, unspecified * Z80.0 Family history of malignant neoplasm of digestive organs * M54.5 Low back pain * Z86.16 Personal history of Covid-19 Functional Status Description No Information Available Mental Status Description No Information Available Referrals Refer to Reason for Referral Status Appt Date Eloy Garrido MD ACCOUNTING MACHINE SERVICER CONSULT FOR SCREENING COL ONOSCOPY DX: FAMILY HX OF COLON CANCER Created [address] [address] [phone]
--- OUTSIDE RECORDS SUMMARY | 2021-04-16 08:29 | CCD | Continuity of Care Document ---
Author Author Adonis BOLAND P.A. Organization Unknown Address [address] [place] [address], [facility] [address] [place] [address] Phone [phone] Care Team Providers Care Nuclear Weapons Mechanical Specialist Name Role Phone Bashir Gallardo MD AUTM [phone] Dea Foreman AUTM [phone] Problems Description No Information Available Social History [...] Available Procedures Date Code Description Status 02/23/2021 48684 Phone Evaluation/Management Phys ician 11-20 Mins Completed 01/21/2021 80459 Physical Therapy Eval - Low Comp lexity Completed 01/05/2021 00452 Office/Outpatient Established Lo w MDM 20-29 Min Completed 11/24/2020 24393 Office/Outpatient Established SF MDM 10-19 Min Completed 11/19/2020 25538 Therapeutic Procedure, Each 15 M inutes Completed 11/19/2020 38402 Therapeutic Procedure, Each 15 M inutes Completed 11/11/2020 74228 Therapeutic Procedure, Each 15 M inutes Completed 11/11/2020 13173 Therapeutic Procedure, Each 15 M inutes Completed 11/11/2020 69283 Hot Or Cold Packs Completed 11/09/2020 44487 Therapeutic Procedure, Each 15 M inutes Completed 11/09/2020 26274 Therapeutic Procedure, Each 15 M inutes Completed 11/04/2020 75460 Therapeutic Procedure, Each 15 M inutes Completed 11/04/2020 12174 Therapeutic Procedure, Each 15 M inutes Completed 10/30/2020 08505 Therapeutic Procedure, Each 15 M inutes Completed 10/30/2020 60115 Therapeutic Procedure, Each 15 M inutes Completed 10/28/2020 41030 Therapeutic Procedure, Each 15 M inutes Completed 10/28/2020 98349 Therapeutic Procedure, Each 15 M inutes Completed 10/28/2020 88415 X-Ray Knee Complete W/Obliques & Tunnel And/Or Standing Views Completed 10/23/2020 75108 Therapeutic Procedure, Each 15 M inutes Completed 10/23/2020 00849 Therapeutic Procedure, Each 15 M inutes Completed 10/19/2020 03450 Therapeutic Procedure, Each 15 M inutes Completed 10/19/2020 52280 Therapeutic Procedure, Each 15 M inutes Completed 10/15/2020 18612 Therapeutic Procedure, Each 15 M inutes Completed 10/15/2020 25150 Therapeutic Procedure, Each 15 M inutes Completed 10/15/2020 25250 Hot Or Cold Packs Completed 10/12/2020 09422 Therapeutic Procedure, Each 15 M inutes Completed 10/12/2020 98548 Therapeutic Procedure, Each 15 M inutes Completed 10/08/2020 45610 Therapeutic Procedure, Each 15 M inutes Completed 10/08/2020 68288 Therapeutic Procedure, Each 15 M inutes Completed 10/08/2020 04567 Hot Or Cold Packs Completed 10/06/2020 82658 Therapeutic Procedure, Each 15 M inutes Completed 10/06/2020 49479 Therapeutic Procedure, Each 15 M inutes Completed 10/01/2020 17000 Therapeutic Procedure, Each 15 M inutes Completed 10/01/2020 77464 Hot Or Cold Packs Completed 10/01/2020 27324 Therapeutic Procedure, Each 15 M inutes Completed 09/30/2020 34780 X-Ray Knee Complete W/Obliques & Tunnel And/Or Standing Views Completed 09/28/2020 07240 Therapeutic Procedure, Each 15 M inutes Completed 09/28/2020 06592 Hot Or Cold Packs Completed 09/25/2020 37150 Therapeutic Procedure, Each 15 M inutes Completed 09/23/2020 70451 Therapeutic Procedure, Each 15 M inutes Completed 09/23/2020 28584 Hot Or Cold Packs Completed 09/16/2020 68729 Physical Therapy Eval - Low Comp lexity Completed 09/02/2020 36316 X-Ray Knee Complete W/Obliques & Tunnel And/Or [...] region M54.2 Cervicalgia Office Visit 11/24/2020 2:40p [place] S82.124D Nondisp fx of lateral condyle of r tibia, 7thD Office Visit 10/28/2020 9:15a [facility] [place] S82.124D Nondisp fx of lateral condyle of r tibia, 7thD Office Visit 09/30/2020 8:30a [facility] [place] S82.124D Nondisp fx of lateral condyle of r tibia, 7thD Office Visit 09/02/2020 8:45a [place] [facility] [place] S82.124D Nondisp fx of lateral condyle of r tibia, 7thD Assessments Date Code Description Provider 02/23/2021 M51.36 Other intervertebral disc degene ration, lumbar region Rick Boland P.A. 02/23/2021 M50.30 Other cervical disc degeneration , unspecified cervical region Kristopher RodasA. 01/21/2021 M51.36 Other intervertebral disc degene ration, lumbar region Leda Jones, [facility] 01/21/2021 M54.2 Cervicalgia Leda Jones , [...] closed fracture with routine healing Danamarie Ortolano, ROSE GRADING SUPERVISOR 11/11/2020 S82.124D Nondisplaced fractur e of lateral condyle of right tibia, subsequent encounter for closed fracture with routine healing Ava Brand, ROSE GRADING SUPERVISOR 11/09/2020 S82.124D Nondisplaced fractur e of lateral condyle of right tibia, subsequent encounter for closed fracture with routine healing Ava Brand, ROSE GRADING SUPERVISOR 11/04/2020 S82.124D Nondisplaced fractur e of lateral condyle of right tibia, subsequent encounter for closed fracture with routine healing Danamarie Ortolano, ROSE GRADING SUPERVISOR 10/30/2020 S82.124D Nondisplaced fractur e of lateral condyle of right tibia, subsequent encounter for closed fracture with routine healing Danamarie Ortolano, ROSE GRADING SUPERVISOR 10/28/2020 S82.124D Nondisplaced fractur e of lateral [...] closed fracture with routine healing Ava Brand, ROSE GRADING SUPERVISOR 10/19/2020 S82.124D Nondisplaced fractur e of lateral [...] closed fracture with routine healing Leda Jones, [facility] 09/30/2020 S82.124D Nondisplaced fractur e of [...] closed fracture with routine healing Francesca Nayak, [facility] 09/23/2020 S82.124D Nondisplaced fractur e of lateral [...] 04/07/2021 2:15 pm - Shane Rodas at [place] Functional Status Description No Information Available Mental Status Description No Information Available Referrals Refer to Dr Reason for Referral Status Appt Date Rick Boland PA Physical Therapy Lumbar Neck , per Chiquita Hopper no auth req and no pre determination recommended. pt is allowed 80 visits per calendar year and has used 0,$25 copay, patient is going to [facility], passed to PT dept. Created [facility] [place] [address] [phone] Rick Boland PA MRI APPROVED PER KAYLEEN ECasey FOR MRI CERVICAL (02175) AND LUMBAR (61636) SPINE TO IVETTE THOMAS Created [facility] [place] [address] [phone] Theodore Aceves I, Pac DME PER BILL AT R NO AUTH REQUIRED FOR SHORT RUNNER (L1833) AND COVERED AT 100% TO GINI ROTH CALL REF #[id number] Created [facility] [address] [address] [phone] Theodore Aceves I, Pac [facility] NEED[facility] MEDICAL DOCUMENTATION AND THEY HAVE A $25 COPAY TO PT DEPT. NT Created [facility] [address] [address] [phone]
--- OUTSIDE RECORDS SUMMARY | 2021-04-16 08:29 | CCD | Continuity of Care Document ---
Author Author Adonis BAKER [facility] Organization Unknown Address [address] [place] [address], [address] [place] [address] Phone [phone] Care Team Providers Care Change Management Name Role Phone Bashir Gallardo MD AUTM [phone] Dea Foreman AUTM [phone] Problems Description No Information Available Social History [...] Information Available Procedures Date Code Description Status 01/05/2021 30249 Office/Outpatient Established Lo w MDM 20-29 Min Completed 11/24/2020 19748 Office/Outpatient Established SF MDM 10-19 Min Completed 11/19/2020 20772 Therapeutic Procedure, Each 15 M inutes Completed 11/19/2020 87320 Therapeutic Procedure, Each 15 M inutes Completed 11/11/2020 47161 Therapeutic Procedure, Each 15 M inutes Completed 11/11/2020 57937 Therapeutic Procedure, Each 15 M inutes Completed 11/11/2020 80252 Hot Or Cold Packs Completed 11/09/2020 71586 Therapeutic Procedure, Each 15 M inutes Completed 11/09/2020 82520 Therapeutic Procedure, Each 15 M inutes Completed 11/04/2020 83190 Therapeutic Procedure, Each 15 M inutes Completed 11/04/2020 75803 Therapeutic Procedure, Each 15 M inutes Completed 10/30/2020 25017 Therapeutic Procedure, Each 15 M inutes Completed 10/30/2020 17990 Therapeutic Procedure, Each 15 M inutes Completed 10/28/2020 71314 Therapeutic Procedure, Each 15 M inutes Completed 10/28/2020 77302 Therapeutic Procedure, Each 15 M inutes Completed 10/28/2020 57919 X-Ray Knee Complete W/Obliques & Tunnel And/Or Standing Views Completed 10/23/2020 68737 Therapeutic Procedure, Each 15 M inutes Completed 10/23/2020 35428 Therapeutic Procedure, Each 15 M inutes Completed 10/19/2020 11305 Therapeutic Procedure, Each 15 M inutes Completed 10/19/2020 73181 Therapeutic Procedure, Each 15 M inutes Completed 10/15/2020 06821 Hot Or Cold Packs Completed 10/15/2020 70081 Therapeutic Procedure, Each 15 M inutes Completed 10/15/2020 84320 Therapeutic Procedure, Each 15 M inutes Completed 10/12/2020 14839 Therapeutic Procedure, Each 15 M inutes Completed 10/12/2020 32610 Therapeutic Procedure, Each 15 M inutes Completed 10/08/2020 97083 Therapeutic Procedure, Each 15 M inutes Completed 10/08/2020 64751 Therapeutic Procedure, Each 15 M inutes Completed 10/08/2020 39554 Hot Or Cold Packs Completed 10/06/2020 00338 Therapeutic Procedure, Each 15 M inutes Completed 10/06/2020 61934 Therapeutic Procedure, Each 15 M inutes Completed 10/01/2020 61938 Therapeutic Procedure, Each 15 M inutes Completed 10/01/2020 51213 Therapeutic Procedure, Each 15 M inutes Completed 10/01/2020 02275 Hot Or Cold Packs Completed 09/30/2020 86528 X-Ray Knee Complete W/Obliques & Tunnel And/Or Standing Views Completed 09/28/2020 99752 Therapeutic Procedure, Each 15 M inutes Completed 09/28/2020 22172 Hot Or Cold Packs Completed 09/25/2020 51546 Therapeutic Procedure, Each 15 M inutes Completed 09/23/2020 78330 Therapeutic Procedure, Each 15 M inutes Completed 09/23/2020 01275 Hot Or Cold Packs Completed 09/16/2020 33257 Physical Therapy Eval - Low Comp lexity Completed 09/02/2020 76001 X-Ray Knee Complete W/Obliques & Tunnel And/Or Standing Views Completed 08/19/2020 42772 Office/Outpatient Established Lo w MDM 20-29 Min Completed 08/19/2020 95144 X-Ray Knee Complete W/Obliques & Tunnel And/Or Standing Views Completed 08/19/2020 99381 FX Tibia Proximal W/O Manipulati on Completed 08/07/2020 33229 Office/Outpatient New Moderate M DM 45-59 Minutes Completed Medical Devices Description No Information Available Encounters Type Date Location Provider Dx Diagnosis Office Visit 01/05/2021 2:30p [place] Rick Boland, PCaseyA. M51.36 Other intervertebral disc degeneration, lumbar region M54.2 Cervicalgia Office Visit 11/24/2020 2:[place] S82.124D Nondisp fx of lateral condyle of r tibia, 7thD Office Visit 10/28/2020 9:15a [place] S82.124D Nondisp fx of lateral condyle of r tibia, 7thD Office Visit 09/30/2020 8:30a [place] S82.124D Nondisp fx of lateral condyle of r tibia, 7thD Office Visit 09/02/2020 8:45a [place] S82.124D Nondisp fx of lateral condyle of r tibia, 7thD Office Visit 08/19/2020 1:15p [place] ZACARIAS Guido S82.124D Nondisp fx of lateral condyle of r tibia, 7thD Office Visit 08/07/2020 3:15p [place] M25.461 Effusion, right knee M25.561 Pain in right knee Assessments Date Code Description Provider 01/05/2021 M51.36 Other intervertebral disc degene ration, lumbar region Rick Boland, P.A. 01/05/2021 M54.2 Cervicalgia Rick licona, P.A. 11/27/2020 S82.124D Nondisplaced fractur e of lateral condyle of right tibia, subsequent encounter for closed fracture with routine healing Leda Baker, MSPT 11/24/2020 S82.124D Nondisplaced fractur e of lateral condyle of right tibia, subsequent encounter for closed fracture with routine healing ZACARIAS Guido 11/19/2020 S82.124D Nondisplaced fractur e of lateral condyle of right tibia, subsequent encounter for closed fracture with routine healing Danamarie Ortolano, TRANSPORTATION PLANNER 11/11/2020 S82.124D Nondisplaced fractur e of lateral condyle of right tibia, subsequent encounter for closed fracture with routine healing Ava Brand, TRANSPORTATION PLANNER 11/09/2020 S82.124D Nondisplaced fractur e of lateral condyle of right tibia, subsequent encounter for closed fracture with routine healing Ava Brand, TRANSPORTATION PLANNER 11/04/2020 S82.124D Nondisplaced fractur e of lateral condyle of right tibia, subsequent encounter for closed fracture with routine healing Danamarie Ortolano, TRANSPORTATION PLANNER 10/30/2020 S82.124D Nondisplaced fractur e of lateral condyle of right tibia, subsequent encounter for closed fracture with routine healing Danamarie Ortolano, TRANSPORTATION PLANNER 10/28/2020 S82.124D Nondisplaced fractur e of lateral condyle of right tibia, subsequent encounter for closed fracture with routine healing Clary Scee P.T.A. 10/28/2020 S82.124D Nondisplaced fractur e of lateral condyle of right tibia, subsequent encounter for closed fracture with routine healing ZACARIAS Guido 10/23/2020 S82.124D Nondisplaced fractur e of lateral condyle of right tibia, subsequent encounter for closed fracture with routine healing Ava Brand, TRANSPORTATION PLANNER 10/19/2020 S82.124D Nondisplaced fractur e of lateral [...] for closed fracture with routine healing Leda Baker, [facility] 09/30/2020 S82.124D Nondisplaced fractur e of [...] closed fracture with routine healing Francesca Nayak, [facility] 09/23/2020 S82.124D Nondisplaced fractur e of lateral condyle of right tibia, subsequent encounter for closed fracture with routine healing Clary Scee P.T.A. 09/16/2020 S82.124D Nondisplaced fractur e of lateral condyle of right tibia, subsequent encounter for closed fracture with routine healing Leda Baker, MSPT 09/02/2020 S82.124D Nondisplaced fractur e of lateral condyle of right tibia, subsequent encounter for closed fracture with routine healing ZACARIAS Guido 08/19/2020 S82.124D Nondisplaced fractur e of lateral condyle of right tibia, subsequent encounter for closed fracture with routine healing ZACARIAS Guido 08/07/2020 M25.461 Effusion, right knee ZACARIAS Payton 08/07/2020 M25.461 Effusion, right knee ZACARIAS Payton 08/07/2020 M25.561 Pain in right knee ZACARIAS Harrison 08/07/2020 M25.561 Pain in right knee ZACARIAS Harrison Plan of Treatment Future Appointment(s):* 02/23/2021 3:00 pm - Shane Rodas at [place] Functional Status Description No Information Available Mental Status Description No Information Available Referrals Refer to Dr Reason for Referral Status Appt Date Rick Boland PA Physical Therapy Lumbar Neck , per Chiquita Hopper no auth req and no pre determination recommended. pt is allowed 80 visits per calendar year and has used 0,$25 copay, patient is going to [facility], passed to PT dept. Created [address] [place] [address] [phone] Rick Boland PA MRI APPROVED PER KAYLEEN Hodge FOR MRI CERVICAL (77348) AND LUMBAR (22403) SPINE TO IVETTE THOMAS Created [address] [place] [address] [phone] Theodore Aceves I, Pac DME PER BILL AT R NO AUTH REQUIRED FOR SHORT RUNNER (L1833) AND COVERED AT 100% TO GINI ROTH CALL REF #[id number] Created [address] [place] [phone] Theodore Aceves I, Pac PT BASED ON MED. [facility] AFTER 25TH VISITS NEEDS MEDICAL DOCUMENTATION AND THEY HAVE A $25 COPAY TO PT DEPT. NT Created [address] [place] [phone] Theodore Aceves I, Pac DME PER NICOLE Bass. AT [facility] NO A [facility] REQUIRED FOR KNEE IMMOBILIZER (L1830) AND COVERED AT 100% TO GINI ROTH CALL REF IS NICOLE Bass. 08/07/20 Created [facility] [address] [place] [address] [phone]
--- OUTSIDE RECORDS SUMMARY | 2021-04-16 08:29 | CCD | Continuity of Care Document ---
Author Author Adonis BAKER [facility] Organization Unknown Address [address] [place] [address], [address] [place] [address] Phone [phone] Care Team Providers Care Mink Farmer Name Role Phone Bashir Gallardo MD AUTM [phone] Dea Foreman AUTM [phone] Problems Description No Information Available Social History [...] Available Procedures Date Code Description Status 01/05/2021 66012 Office/Outpatient Established Lo w MDM 20-29 Min Completed 11/24/2020 69063 Office/Outpatient Established SF MDM 10-19 Min Completed 11/19/2020 87288 Therapeutic Procedure, Each 15 M inutes Completed 11/19/2020 22411 Therapeutic Procedure, Each 15 M inutes Completed 11/11/2020 06371 Therapeutic Procedure, Each 15 M inutes Completed 11/11/2020 35934 Therapeutic Procedure, Each 15 M inutes Completed 11/11/2020 49874 Hot Or Cold Packs Completed 11/09/2020 15781 Therapeutic Procedure, Each 15 M inutes Completed 11/09/2020 68661 Therapeutic Procedure, Each 15 M inutes Completed 11/04/2020 38861 Therapeutic Procedure, Each 15 M inutes Completed 11/04/2020 17537 Therapeutic Procedure, Each 15 M inutes Completed 10/30/2020 19918 Therapeutic Procedure, Each 15 M inutes Completed 10/30/2020 66639 Therapeutic Procedure, Each 15 M inutes Completed 10/28/2020 03820 Therapeutic Procedure, Each 15 M inutes Completed 10/28/2020 44502 Therapeutic Procedure, Each 15 M inutes Completed 10/28/2020 21027 X-Ray Knee Complete W/Obliques & Tunnel And/Or Standing Views Completed 10/23/2020 93491 Therapeutic Procedure, Each 15 M inutes Completed 10/23/2020 44446 Therapeutic Procedure, Each 15 M inutes Completed 10/19/2020 97392 Therapeutic Procedure, Each 15 M inutes Completed 10/19/2020 02329 Therapeutic Procedure, Each 15 M inutes Completed 10/15/2020 47383 Hot Or Cold Packs Completed 10/15/2020 84812 Therapeutic Procedure, Each 15 M inutes Completed 10/15/2020 13630 Therapeutic Procedure, Each 15 M inutes Completed 10/12/2020 85419 Therapeutic Procedure, Each 15 M inutes Completed 10/12/2020 67016 Therapeutic Procedure, Each 15 M inutes Completed 10/08/2020 46823 Therapeutic Procedure, Each 15 M inutes Completed 10/08/2020 75473 Therapeutic Procedure, Each 15 M inutes Completed 10/08/2020 53652 Hot Or Cold Packs Completed 10/06/2020 41405 Therapeutic Procedure, Each 15 M inutes Completed 10/06/2020 76672 Therapeutic Procedure, Each 15 M inutes Completed 10/01/2020 60126 Therapeutic Procedure, Each 15 M inutes Completed 10/01/2020 00728 Therapeutic Procedure, Each 15 M inutes Completed 10/01/2020 38050 Hot Or Cold Packs Completed 09/30/2020 68096 X-Ray Knee Complete W/Obliques & Tunnel And/Or Standing Views Completed 09/28/2020 30518 Therapeutic Procedure, Each 15 M inutes Completed 09/28/2020 77564 Hot Or Cold Packs Completed 09/25/2020 87159 Therapeutic Procedure, Each 15 M inutes Completed 09/23/2020 85823 Therapeutic Procedure, Each 15 M inutes Completed 09/23/2020 86826 Hot Or Cold Packs Completed 09/16/2020 50786 Physical Therapy Eval - Low Comp lexity Completed 09/02/2020 35150 X-Ray Knee Complete W/Obliques & Tunnel And/Or Standing Views Completed 08/19/2020 61466 Office/Outpatient Established Lo w MDM 20-29 Min Completed 08/19/2020 96540 X-Ray Knee Complete W/Obliques & Tunnel And/Or Standing Views Completed 08/19/2020 47799 FX Tibia Proximal W/O Manipulati on Completed 08/07/2020 66044 Office/Outpatient New Moderate M DM 45-59 Minutes Completed Medical Devices Description No Information Available Encounters Type Date Location Provider Dx Diagnosis Office Visit 01/05/2021 2:30p [place] Rick Boland, PCaseyA. M51.36 Other intervertebral disc degeneration, lumbar region M54.2 Cervicalgia Office Visit 11/24/2020 2:[place] S[place].124D Nondisp fx of lateral condyle of r tibia, 7thD Office Visit 10/28/2020 9:15a [place] S82.124D Nondisp fx of lateral condyle of r tibia, 7thD Office Visit 09/30/2020 8:30a [place] S82.124D Nondisp fx of lateral condyle of r tibia, 7thD Office Visit 09/02/2020 8:45a [place] S82.124D Nondisp fx of lateral condyle of r tibia, 7thD Office Visit 08/19/2020 1:15p [place] ZACARIAS Guido S82.124D Nondisp fx of lateral condyle of r tibia, 7thD Office Visit 08/07/2020 3:15p [place] M25.461 Effusion, right knee M25.561 Pain [...] closed fracture with routine healing Danamarie Ortolano, FINANCIAL ANALYSIS CONSULTANT 11/11/2020 S82.124D Nondisplaced fractur e of lateral condyle of right tibia, subsequent encounter for closed fracture with routine healing Ava Brand, FINANCIAL ANALYSIS CONSULTANT 11/09/2020 S82.124D Nondisplaced fractur e of lateral condyle of right tibia, subsequent encounter for closed fracture with routine healing Ava Brand, FINANCIAL ANALYSIS CONSULTANT 11/04/2020 S82.124D Nondisplaced fractur e of lateral condyle of right tibia, subsequent encounter for closed fracture with routine healing Danamarie Ortolano, FINANCIAL ANALYSIS CONSULTANT 10/30/2020 S82.124D Nondisplaced fractur e of lateral condyle of right tibia, subsequent encounter for closed fracture with routine healing Danamarie Ortolano, FINANCIAL ANALYSIS CONSULTANT 10/28/2020 S82.124D Nondisplaced fractur e of lateral [...] closed fracture with routine healing Ava Brand, FINANCIAL ANALYSIS CONSULTANT 10/19/2020 S82.124D Nondisplaced fractur e of lateral [...] closed fracture with routine healing Leda Baker, [facility] 09/30/2020 S82.124D Nondisplaced fractur e of lateral [...] closed fracture with routine healing Francesca Nayak, [facility] 09/23/2020 S82.124D Nondisplaced fractur e of lateral [...] 02/23/2021 3:00 pm - Shane Rodas at [place] Functional Status Description No Information Available Mental Status Description No Information Available Referrals Refer to Dr Reason for Referral Status Appt Date Rick Boland PA Physical Therapy Lumbar Neck , per Chiquita Hopper no auth req and no pre determination recommended. pt is allowed 80 visits per calendar year and has used 0,$25 copay, patient is going to [facility], passed to PT dept. Created [address] [place] [address] [phone] Rick Boland PA MRI APPROVED PER KAYLEEN Hodge FOR MRI CERVICAL (91520) AND LUMBAR (40461) SPINE TO IVETTE THOMAS Created [address] [place] [address] [phone] Theodore Aceves I, Pac DME PER BILL AT R NO AUTH REQUIRED FOR SHORT RUNNER (L1833) AND COVERED AT 100% TO GINI ROTH CALL REF #[id number] Created [address] [place] [phone] Theodore Aceves I, Pac PT BASED ON MED. [facility] AFTER 25TH VISITS NEEDS MEDICAL DOCUMENTATION AND THEY HAVE A $25 COPAY TO PT DEPT. NT Created [address] [place] [phone] Theodore Aceves I, Pac DME PER NICOLE Bass. AT [facility] NO A [facility] REQUIRED FOR KNEE IMMOBILIZER (L1830) AND COVERED AT 100% TO GINI ROTH CALL REF IS NICOLE Bass. 08/07/20 Created [facility] [address] [place] [address] [phone]
--- OUTSIDE RECORDS SUMMARY | 2021-04-16 08:29 | CCD | Continuity of Care Document ---
Author Author Adonis BOLAND P.A. Organization Unknown Address [address] [place] [address], [facility] [address] [place] [address] Phone [phone] Care Team Providers Care Automobile Service Station Manager Name Role Phone Bashir Gallardo MD AUTM [phone] Dea Foreman AUTM [phone] Problems Description No Information Available Social History Type Date Description Comments Sex Unknown Allergies, Adverse Reactions, Alerts Description No Information Available Medications Active Medications SIG Qnty Indications Ordering Provide r Date Amlodipine Besylate 10mg Tablets Bashir Gallardo MD Hydrochlorothiazide 25mg Tablets Bashir Gallardo MD Loratadine 10mg Tablets Bsahir Gallardo MD Immunizations Description No Information Available Vital Signs Date Vital Result Comment 08/07/2020 3:41pm Body Temperature 97.8 F Height 73 inches 6'1" Weight 220.00 lb BMI (Body Mass Index) 29.0 kg/m2 Results Description No Information Available Procedures Date Code Description Status 02/23/2021 62823 Phone Evaluation/Management Phys ician 11-20 Mins Completed 01/21/2021 38049 Physical Therapy Eval - Low Comp lexity Completed 01/05/2021 29179 Office/Outpatient Established Lo w MDM 20-29 Min Completed 11/24/2020 60355 Office/Outpatient Established SF MDM 10-19 Min Completed 11/19/2020 80218 Therapeutic Procedure, Each 15 M inutes Completed 11/19/2020 46024 Therapeutic Procedure, Each 15 M inutes Completed 11/11/2020 40705 Therapeutic Procedure, Each 15 M inutes Completed 11/11/2020 85558 Therapeutic Procedure, Each 15 M inutes Completed 11/11/2020 20840 Hot Or Cold Packs Completed 11/09/2020 84125 Therapeutic Procedure, Each 15 M inutes Completed 11/09/2020 38484 Therapeutic Procedure, Each 15 M inutes Completed 11/04/2020 59833 Therapeutic Procedure, Each 15 M inutes Completed 11/04/2020 47859 Therapeutic Procedure, Each 15 M inutes Completed 10/30/2020 78066 Therapeutic Procedure, Each 15 M inutes Completed 10/30/2020 67679 Therapeutic Procedure, Each 15 M inutes Completed 10/28/2020 92170 Therapeutic Procedure, Each 15 M inutes Completed 10/28/2020 71515 Therapeutic Procedure, Each 15 M inutes Completed 10/28/2020 76499 X-Ray Knee Complete W/Obliques & Tunnel And/Or Standing Views Completed 10/23/2020 87268 Therapeutic Procedure, Each 15 M inutes Completed 10/23/2020 88910 Therapeutic Procedure, Each 15 M inutes Completed 10/19/2020 98262 Therapeutic Procedure, Each 15 M inutes Completed 10/19/2020 33247 Therapeutic Procedure, Each 15 M inutes Completed 10/15/2020 83830 Therapeutic Procedure, Each 15 M inutes Completed 10/15/2020 55633 Therapeutic Procedure, Each 15 M inutes Completed 10/15/2020 22023 Hot Or Cold Packs Completed 10/12/2020 02612 Therapeutic Procedure, Each 15 M inutes Completed 10/12/2020 70830 Therapeutic Procedure, Each 15 M inutes Completed 10/08/2020 20126 Therapeutic Procedure, Each 15 M inutes Completed 10/08/2020 63303 Therapeutic Procedure, Each 15 M inutes Completed 10/08/2020 31515 Hot Or Cold Packs Completed 10/06/2020 66582 Therapeutic Procedure, Each 15 M inutes Completed 10/06/2020 09825 Therapeutic Procedure, Each 15 M inutes Completed 10/01/2020 52943 Therapeutic Procedure, Each 15 M inutes Completed 10/01/2020 68065 Hot Or Cold Packs Completed 10/01/2020 01308 Therapeutic Procedure, Each 15 M inutes Completed 09/30/2020 51342 X-Ray Knee Complete W/Obliques & Tunnel And/Or Standing Views Completed 09/28/2020 35558 Therapeutic Procedure, Each 15 M inutes Completed 09/28/2020 46449 Hot Or Cold Packs Completed 09/25/2020 35729 Therapeutic Procedure, Each 15 M inutes Completed 09/23/2020 41712 Therapeutic Procedure, Each 15 M inutes Completed 09/23/2020 91055 Hot Or Cold Packs Completed 09/16/2020 85090 Physical Therapy Eval - Low Comp lexity Completed 09/02/2020 52233 X-Ray Knee Complete W/Obliques & Tunnel And/Or [...] region M54.2 Cervicalgia Office Visit 11/24/2020 2[place] S[place].124D Nondisp fx of lateral condyle of r tibia, 7thD Office Visit 10/28/2020 9:15a [place] S82.124D Nondisp fx of lateral condyle of r tibia, 7thD Office Visit 09/30/2020 8:30a [place] S82.124D Nondisp fx of lateral condyle of r tibia, 7thD Office Visit 09/02/2020 8:45a [place] S82.124D Nondisp fx of lateral condyle [...] closed fracture with routine healing Danamarie Ortolano, ROTARY HELPER 11/11/2020 S82.124D Nondisplaced fractur e of lateral condyle of right tibia, subsequent encounter for closed fracture with routine healing Ava Brand, ROTARY HELPER 11/09/2020 S82.124D Nondisplaced fractur e of lateral condyle of right tibia, subsequent encounter for closed fracture with routine healing Ava Brand, ROTARY HELPER 11/04/2020 S82.124D Nondisplaced fractur e of lateral condyle of right tibia, subsequent encounter for closed fracture with routine healing Danamarie Ortolano, ROTARY HELPER 10/30/2020 S82.124D Nondisplaced fractur e of lateral condyle of right tibia, subsequent encounter for closed fracture with routine healing Danamarie Ortolano, ROTARY HELPER 10/28/2020 S82.124D Nondisplaced fractur e of lateral [...] closed fracture with routine healing Ava Brand, ROTARY HELPER 10/19/2020 S82.124D Nondisplaced fractur e of lateral [...] closed fracture with routine healing Leda Jones, [facility] 09/30/2020 S82.124D Nondisplaced fractur e of lateral [...] closed fracture with routine healing Francesca Nayak, [facility] 09/23/2020 S82.124D Nondisplaced fractur e of lateral [...] 04/07/2021 2:15 pm - Shane Rodas at [place] Functional Status Description No Information Available Mental Status Description No Information Available Referrals Refer to Dr Reason for Referral Status Appt Date Rick Boland PA Physical Therapy Lumbar Neck , per Chiquita Hopper no auth req and no pre determination recommended. pt is allowed 80 visits per calendar year and has used 0,$25 copay, patient is going to [facility], passed to PT dept. Created [facility] [place] [address] [phone] Rick Boland PA MRI APPROVED PER KAYLEEN ECasey FOR MRI CERVICAL (12565) AND LUMBAR (10714) SPINE TO IVETTE THOMAS Created [facility] [place] [address] [phone] Theodore Aceves I, Pac DME PER BILL AT R NO AUTH REQUIRED FOR SHORT RUNNER (L1833) AND COVERED AT 100% TO GINI ROTH CALL REF #[id number] Created [facility] [address] [address] [phone] Theodore Aceves I, Pac [facility] NEED[facility] MEDICAL DOCUMENTATION AND THEY HAVE A $25 COPAY TO PT DEPT. NT Created [facility] [address] [address] [phone]
--- OUTSIDE RECORDS SUMMARY | 2021-04-16 08:29 | CCD | Continuity of Care Document ---
Author Author Adonis Gallardo MD Organization Unknown Address [address] [place] [address] Phone [phone] Care Team Providers Care Red Mud Thickener Operator Name Role Phone Bashir Gallardo JR, MD AUTM Unavailable Problems Description No Information Available Social History Type Date Description Comments Sex Unknown ETOH Use Occasionally consumes wine Tobacco Use Start: Unknown Patient has never smoked Allergies, Adverse Reactions, Alerts Description No Known Drug Allergies Medications Active Medications SIG Qnty Indications Ordering Provide r Date Fluticasone Propionate Nasal [place] 24- H our 50mcg/Act Suspension 2 puffs [...] H/L Range Note Complete Blood Count 01/20/2021 [facility] [employer] Rigger: [place] [address] [phone] WBC 4.5 x10*3/UL 4.1 - 10.9 RBC [...] 2.0 - 7.8 Comprehensive Chem Profile 01/20/2021 [facility] [employer] Rigger: [place] [address] [phone] Glucose 96 mg/dL 74 - 99 1 [...] 60 mL/min >60 2 Lipid Profile 01/20/2021 [facility] [employer]ach[employer] Rigger: [place] [address] [phone] Cholesterol 230 mg/dL High 131 - 200 [...] LITTLE GFR LEFT ESRD GFR <15 ON CLINICAL SCIENCE CONSULTANT Procedures Date Code Description Status 01/20/2021 56410 Office/Outpatient Established Mo d MDM 30-39 Min Completed Medical Devices Description No Information Available Encounters Type Date Location Provider Dx Diagnosis Office Visit 01/20/2021 8:40a [facility] Bashir Gallardo MD R73.09 Other [...] 05/26/2021 8:10 am - [facility] * 07/28/2021 9:00 am - Bashir Gallardo MD at [facility] 01/20/2021 - Bashir Gallardo MD* [...] Referral Status Appt Date Eloy Garrido MD [facility] CONSULT FOR SCREENING COL ONOSCOPY DX: FAMILY HX OF COLON CANCER Scheduled 03/03/[address] [address] [phone]
--- OUTSIDE RECORDS SUMMARY | 2021-04-16 08:29 | CCD | Continuity of Care Document ---
Author Author Adonis HESS P.A. Organization Unknown Address [address] [place] [address], [facility] [address] [place] [address] Phone [phone] Care Team Providers Care Graphotype Operator Name Role Phone Bashir Gallardo MD AUTM [phone] Dea Foreman AUTM [phone] Problems Description No Information Available Social History [...] Available Procedures Date Code Description Status 01/05/2021 41632 Office/Outpatient Established Lo w MDM 20-29 Min Completed 11/24/2020 96368 Office/Outpatient Established SF MDM 10-19 Min Completed 11/19/2020 75134 Therapeutic Procedure, Each 15 M inutes Completed 11/19/2020 80200 Therapeutic Procedure, Each 15 M inutes Completed 11/11/2020 35262 Therapeutic Procedure, Each 15 M inutes Completed 11/11/2020 77617 Therapeutic Procedure, Each 15 M inutes Completed 11/11/2020 93162 Hot Or Cold Packs Completed 11/09/2020 47556 Therapeutic Procedure, Each 15 M inutes Completed 11/09/2020 10027 Therapeutic Procedure, Each 15 M inutes Completed 11/04/2020 87380 Therapeutic Procedure, Each 15 M inutes Completed 11/04/2020 95450 Therapeutic Procedure, Each 15 M inutes Completed 10/30/2020 66384 Therapeutic Procedure, Each 15 M inutes Completed 10/30/2020 86440 Therapeutic Procedure, Each 15 M inutes Completed 10/28/2020 58067 Therapeutic Procedure, Each 15 M inutes Completed 10/28/2020 69016 Therapeutic Procedure, Each 15 M inutes Completed 10/28/2020 30153 X-Ray Knee Complete W/Obliques & Tunnel And/Or Standing Views Completed 10/23/2020 89143 Therapeutic Procedure, Each 15 M inutes Completed 10/23/2020 05480 Therapeutic Procedure, Each 15 M inutes Completed 10/19/2020 56012 Therapeutic Procedure, Each 15 M inutes Completed 10/19/2020 88471 Therapeutic Procedure, Each 15 M inutes Completed 10/15/2020 71988 Hot Or Cold Packs Completed 10/15/2020 74904 Therapeutic Procedure, Each 15 M inutes Completed 10/15/2020 30385 Therapeutic Procedure, Each 15 M inutes Completed 10/12/2020 95153 Therapeutic Procedure, Each 15 M inutes Completed 10/12/2020 30406 Therapeutic Procedure, Each 15 M inutes Completed 10/08/2020 94532 Therapeutic Procedure, Each 15 M inutes Completed 10/08/2020 78990 Therapeutic Procedure, Each 15 M inutes Completed 10/08/2020 24849 Hot Or Cold Packs Completed 10/06/2020 34509 Therapeutic Procedure, Each 15 M inutes Completed 10/06/2020 61204 Therapeutic Procedure, Each 15 M inutes Completed 10/01/2020 57079 Therapeutic Procedure, Each 15 M inutes Completed 10/01/2020 52103 Therapeutic Procedure, Each 15 M inutes Completed 10/01/2020 00150 Hot Or Cold Packs Completed 09/30/2020 15692 X-Ray Knee Complete W/Obliques & Tunnel And/Or Standing Views Completed 09/28/2020 37393 Therapeutic Procedure, Each 15 M inutes Completed 09/28/2020 29344 Hot Or Cold Packs Completed 09/25/2020 27007 Therapeutic Procedure, Each 15 M inutes Completed 09/23/2020 89163 Therapeutic Procedure, Each 15 M inutes Completed 09/23/2020 98225 Hot Or Cold Packs Completed 09/16/2020 95916 Physical Therapy Eval - Low Comp lexity Completed 09/02/2020 78120 X-Ray Knee Complete W/Obliques & Tunnel And/Or Standing Views Completed 08/19/2020 07960 Office/Outpatient Established Lo w MDM 20-29 Min Completed 08/19/2020 90631 X-Ray Knee Complete W/Obliques & Tunnel And/Or Standing Views Completed 08/19/2020 24719 FX Tibia Proximal W/O Manipulati on Completed 08/07/2020 47374 Office/Outpatient New Moderate M DM 45-59 Minutes Completed Medical Devices Description No Information Available Encounters Type Date Location Provider Dx Diagnosis [facility], P.A[facility] M51.36 Other intervertebral disc degeneration, lumbar region M54.2 Cervicalgia Office Visit 11/24/2020 2:40p [place] ZACARIAS Guido S82.124D Nondisp fx of lateral condyle of r tibia, 7thD Office Visit 10/28/2020 9:15a [place] ZACARIAS Guido S82.124D Nondisp fx of lateral condyle of r tibia, 7thD Office Visit 09/30/2020 8:30a [place] ZACARIAS Guido S82.124D Nondisp fx of lateral condyle of r tibia, 7thD Office Visit 09/02/2020 8:45a [place] ZACARIAS Guido S82.124D Nondisp fx of lateral condyle of r tibia, 7thD Office Visit 08/19/2020 1:15p [place] ZACARIAS Guido S82.124D Nondisp fx of lateral condyle of r tibia, 7thD Office Visit 08/07/2020 3:15p [place] ZACARIAS Guido M25.461 Effusion, right knee M25.561 Pain in right knee Assessments Date Code Description Provider 01/05/2021 M51.36 Other intervertebral disc degene ration, lumbar region Rick Hess, P.A. 01/05/2021 M54.2 Cervicalgia Rick licona, P.A. [...] closed fracture with routine healing Danamarie Ortolano, [employer] 11/11/2020 S82.124D Nondisplaced fractur e of lateral condyle of right tibia, subsequent encounter for closed fracture with routine healing Ava Brand, [employer] 11/09/2020 S82.124D Nondisplaced fractur e of lateral condyle of right tibia, subsequent encounter for closed fracture with routine healing Ava Brand, [employer] 11/04/2020 S82.124D Nondisplaced fractur e of lateral condyle of right tibia, subsequent encounter for closed fracture with routine healing Danamarie Ortolano, [employer] 10/30/2020 S82.124D Nondisplaced fractur e of lateral condyle of right tibia, subsequent encounter for closed fracture with routine healing Danamarie Ortolano, [employer] 10/28/2020 S82.124D Nondisplaced fractur e of lateral [...] closed fracture with routine healing Ava Brand, [employer] 10/19/2020 S82.124D Nondisplaced fractur e of lateral [...] closed fracture with routine healing Leda Jones, [facility] 09/30/2020 S82.124D Nondisplaced fractur e of lateral [...] closed fracture with routine healing Francesca Nayak, [facility] 09/23/2020 S82.124D Nondisplaced fractur e [...] ZACARIAS Harrison Plan of Treatment Future Appointment(s):* 01/21/2021 3:30 pm - LINDA UgaldeT at Physical Therapy 01/05/2021 - Rick Hess, PMario* M51.36 Other intervertebral disc degeneration, lumbar region* New Xrays:* MRI Lumbar Spine, Scheduled: 02/04/21 * Follow up:* with [facility] for lumbar/cervical mri results * M54.2 Cervicalgia* New Xrays:* MRI C-Spine, Scheduled: 02/04/21 Functional Status Description No Information Available Mental Status Description No Information Available Referrals Refer to Dr Reason for Referral Status Appt Date Rick Hess PA Physical Therapy Lumbar Neck , per Chiquita Hopper no auth req and no pre determination recommended. pt is allowed 80 visits per calendar year and has used 0,$25 copay, patient is going to [facility], passed to PT dept. Created [address] [place] [address] [phone] Rick Hess PA MRI APPROVED PER KAYLEEN Hodge FOR MRI CERVICAL (03506) AND LUMBAR (34945) SPINE TO IVETTE THOMAS Created [address] [place] [address] [phone] Theodore Aceves Pac DME PER BILL AT [facility] NO AUTH REQUIRED FOR SHORT RUNNER ([id number]) AND COVERED AT 100% TO GINI GONZALEZ CALL REF #[id number] Created [address] [address] [phone] Theodore Aceves I, Pac PT BASED ON MED. [facility] AFTER 25TH VISITS NEEDS MEDICAL DOCUMENTATION AND THEY HAVE A $25 COPAY TO PT DEPT. NT Created [facility] [address] [address] [phone] Theodore Aceves I, Pac DME PER NICOLE Bejarano AT [facility] NO A [facility] REQUIRED FOR KNEE IMMOBILIZER ([id number]) AND COVERED AT 100% TO GINI ROTH CALL REF IS NICOLE Bejarano 08/07/[address] [place] [phone]
--- OUTSIDE RECORDS SUMMARY | 2021-04-16 08:30 | CCD ---
Author Author [facility] Organization [facility] Address Unknown Phone Unavailable Care Team Providers Care Maintenance Clerk Name Role Phone Reece, Sofy MARKET INVESTIGATOR Unavailable Unavailable Reece, Sofy MARKET INVESTIGATOR Unavailable Unavailable Reece, Sofy MARKET INVESTIGATOR Unavailable Unavailable Reece, Sfoy MARKET INVESTIGATOR Unavailable Unavailable Reece, Sofy MARKET INVESTIGATOR Unavailable Unavailable Reece, Sofy MARKET INVESTIGATOR Unavailable Unavailable Reece, Sofy MARKET INVESTIGATOR Unavailable Unavailable Reece, Sofy MARKET INVESTIGATOR Unavailable Unavailable Reece, Sofy MARKET INVESTIGATOR Unavailable Unavailable Reece, Sofy MARKET INVESTIGATOR Unavailable Unavailable Reece, Soyf MARKET INVESTIGATOR Unavailable Unavailable Reece, Sofy MARKET INVESTIGATOR Unavailable Unavailable Reece, Sofy MARKET INVESTIGATOR Unavailable Unavailable LETTIERE, Kali AVILES PA Unavailable Unavailable LETTIERE, Kali AVILES PA Unavailable Unavailable LETTIERE, Kali AVILES PA Unavailable Unavailable LETTIERE, Kali AVILES PA Unavailable Unavailable LETTIERE, Kali AVILES PA Unavailable Unavailable LETTIERE, Kali AVILES PA Unavailable Unavailable LETTIERE, Kali AVILES PA Unavailable Unavailable LETTIERE, Kali AVILES PA Unavailable Unavailable LETTIERE, Kali AVILES PA Unavailable Unavailable LETTIERE, Kali AVILES PA Unavailable Unavailable LETTIERE, Kali AVILES PA Unavailable Unavailable LETTIERE, Kali AVILES PA Unavailable Unavailable LETTIERE, Kali AVILES PA Unavailable Unavailable LETTIERE, Kali AVILES PA Unavailable Unavailable LETTIERE, Kali AVILES PA Unavailable Unavailable LETTIERE, Kali AVILES PA Unavailable Unavailable LETTIERE, Kali AVILES PA Unavailable Unavailable LETTIERE, A TRACI PA Unavailable Unavailable LETTIERE, A TRACI PA Unavailable Unavailable LETTIERE, A TRACI PA Unavailable Unavailable LETTIERE, A TRACI PA Unavailable Unavailable LETTIERE, A TRACI PA Unavailable Unavailable LETTIERE, A TRACI PA Unavailable Unavailable LETTIERE, A TRACI PA Unavailable Unavailable LETTIERE, A TRACI PA Unavailable Unavailable LETTIERE, A TRACI PA Unavailable Unavailable LETTIERE, A TRACI PA Unavailable Unavailable LETTIERE, A TRACI PA Unavailable Unavailable LETTIERE, A TRACI PA Unavailable Unavailable LETTIERE, A TRACI PA Unavailable Unavailable LETTIERE, A TRACI PA Unavailable Unavailable MCELHERAN, TRACI PA Unavailable Unavailable MCELHERAN, TRACI PA Unavailable Unavailable MCELHERAN, TRACI PA Unavailable Unavailable MCELHERAN, TRACI PA Unavailable Unavailable MCELHERAN, TRACI PA Unavailable Unavailable MCELHERAN, TRACI PA Unavailable Unavailable MCELHERAN, TRACI PA Unavailable Unavailable MCELHERAN, TRACI PA Unavailable Unavailable MCELHERAN, TRACI PA Unavailable Unavailable MCELHERAN, TRACI PA Unavailable Unavailable MCELHERAN, TRACI PA Unavailable Unavailable MCELHERAN, TRACI PA Unavailable Unavailable MCELHERAN, TRACI PA Unavailable Unavailable MCELHERAN, TRACI PA Unavailable Unavailable MCELHERAN, TRACI PA Unavailable Unavailable MCELHERAN, TRACI PA Unavailable Unavailable MCELHERAN, TRACI PA Unavailable Unavailable MCELHERAN, TRACI PA Unavailable Unavailable MCELHERAN, TRACI PA Unavailable Unavailable MCELHERAN, TRACI PA Unavailable Unavailable MCELHERAN, TRACI PA Unavailable Unavailable MCELHERAN, TRACI PA Unavailable Unavailable MCELHERAN, TRACI PA Unavailable Unavailable MCELHERAN, TRACI PA Unavailable Unavailable MCELHERAN, TRACI PA Unavailable Unavailable MCELHERAN, TRACI PA Unavailable Unavailable MCELHERAN, TRACI PA Unavailable Unavailable MCELHERAN, TRACI PA Unavailable Unavailable MCELHERAN, TRAIC PA Unavailable Unavailable Rey Gallardo MD Unavailable Unavailable Rey Gallardo MD Unavailable Unavailable Rey Gallardo MD Unavailable Unavailable Rey Gallardo MD Unavailable Unavailable Rey Gallardo MD Unavailable Unavailable Rey Gallardo MD Unavailable Unavailable Rey Gallardo MD Unavailable Unavailable Rey Gallardo MD Unavailable Unavailable Rey Gallardo MD Unavailable Unavailable Rey Gallardo MD Unavailable Unavailable Rey Gallardo MD Unavailable Unavailable Rey Gallardo MD Unavailable Unavailable SamiRey boogie MD Unavailable Unavailable SamiRey MD Unavailable Unavailable MullinRey MD Unavailable Unavailable MullinRey MD Unavailable Unavailable SamiRey MD Unavailable Unavailable MullinRey MD Unavailable Unavailable SamiRey MD Unavailable Unavailable MullinRey MD Unavailable Unavailable MullinRey MD Unavailable Unavailable SamiRey MD Unavailable Unavailable MullinRey MD Unavailable Unavailable SamiRey MD Unavailable Unavailable MullinRey MD Unavailable Unavailable SamiRey MD Unavailable Unavailable SamiRey MD Unavailable Unavailable SamiRey MD Unavailable Unavailable MullinRey MD Unavailable Unavailable SamiRey MD Unavailable Unavailable MullinRey MD Unavailable Unavailable SamiRey MD Unavailable Unavailable MullinRey MD Unavailable Unavailable MullinRey MD Unavailable Unavailable SamiRey MD Unavailable Unavailable MullinRey MD Unavailable Unavailable SamiRey MD Unavailable Unavailable MullinRey MD Unavailable Unavailable SamiRey MD Unavailable Unavailable MullinRey MD Unavailable Unavailable MullinRey MD Unavailable Unavailable MullinRey MD Unavailable Unavailable MullinRey MD Unavailable Unavailable MullinRey MD Unavailable Unavailable SamiRey MD Unavailable Unavailable SamiRey MD Unavailable Unavailable SamiRey MD Unavailable Unavailable SamiRey MD Unavailable Unavailable SamiRey MD Unavailable Unavailable MullinRey MD Unavailable Unavailable SamiRey MD Unavailable Unavailable SamiRey MD Unavailable Unavailable SamiRey MD Unavailable Unavailable MullinRey MD Unavailable Unavailable MullinRey MD Unavailable Unavailable MullinRey MD Unavailable Unavailable SamiRey MD Unavailable Unavailable SamiRey MD Unavailable Unavailable MullinRey MD Unavailable Unavailable MullinRey MD Unavailable Unavailable SamiRey MD Unavailable Unavailable MullinRey MD Unavailable Unavailable MullinRey MD Unavailable Unavailable SamiRey MD Unavailable Unavailable SamiRey MD Unavailable Unavailable MullinRey MD Unavailable Unavailable SamiRey MD Unavailable Unavailable SamiRey MD Unavailable Unavailable SamiRey MD Unavailable Unavailable Mullin, F Camejo MD Unavailable Unavailable Rey Gallardo MD Unavailable Unavailable MullinRey boogie MD Unavailable Unavailable Rey Gallardo MD Unavailable Unavailable SamiRey boogie MD Unavailable Unavailable SamiRey boogie MD Unavailable Unavailable SamiRey boogie MD Unavailable Unavailable SamiRey boogie MD Unavailable Unavailable SamiRey boogie MD Unavailable Unavailable SamiRey boogie MD Unavailable Unavailable SamiRey boogie MD Unavailable Unavailable SamiRey boogie MD Unavailable Unavailable SamiRey boogie MD Unavailable Unavailable MullinRey boogie MD Unavailable Unavailable SamiRey boogie MD Unavailable Unavailable MullinRey boogie MD Unavailable Unavailable SamiRey boogie MD Unavailable Unavailable DRAZEK, I YONNY PA Unavailable Unavailable DRAZEK, I YONNY PA Unavailable Unavailable DRAZEK, I YONNY PA Unavailable Unavailable DRAZEK, I YONNY PA Unavailable Unavailable DRAZEK, I YONNY PA Unavailable Unavailable DRAZEK, I YONNY PA Unavailable Unavailable DRAZEK, I YONNY PA Unavailable Unavailable DRAZEK, I YONNY PA Unavailable Unavailable DRAZEK, I YONNY PA Unavailable Unavailable DRAZEK, I YONNY PA Unavailable Unavailable DRAZEK, I YONNY PA Unavailable Unavailable DRAZEK, I YONNY PA Unavailable Unavailable DRAZEK, I YONNY PA Unavailable Unavailable DRAZEK, I YONNY PA Unavailable Unavailable DRAZEK, I YONNY PA Unavailable Unavailable DRAZEK, I YONNY PA Unavailable Unavailable DRAZEK, I YONNY PA Unavailable Unavailable DRAZEK, I YONNY PA Unavailable Unavailable DRAZEK, I YONNY PA Unavailable Unavailable DRAZEK, I YONNY PA Unavailable Unavailable DRAZEK, I YONNY PA Unavailable Unavailable DRAZEK, I YONNY PA Unavailable Unavailable DRAZEK, I YONNY PA Unavailable Unavailable DRAZEK, I YONNY PA Unavailable Unavailable DRAZEK, I YONNY PA Unavailable Unavailable DRAZEK, I YONNY PA Unavailable Unavailable DRAZEK, I YONNY PA Unavailable Unavailable DRAZEK, I YONNY PA Unavailable Unavailable DRAZEK, I YONNY PA Unavailable Unavailable DRAZEK, I YONNY PA Unavailable Unavailable RING, K MAHENDRA PA Unavailable Unavailable RING, K MAHENDRA PA Unavailable Unavailable RING, K MAHENDRA PA Unavailable Unavailable RING, K MAHENDRA PA Unavailable Unavailable RING, K MAHENDRA PA Unavailable Unavailable RING, K MAHENDRA PA Unavailable Unavailable RING, K MAHENDRA PA Unavailable Unavailable RING, K MAHENDRA PA Unavailable Unavailable RING, K MAHENDRA PA Unavailable Unavailable RING, K MAHENDRA PA Unavailable Unavailable RING, K MAHENDRA PA Unavailable Unavailable RING, K MAHENDRA PA Unavailable Unavailable RING, K MAHENDRA PA Unavailable Unavailable RING, K MAHENDRA PA Unavailable Unavailable RING, K MAHENDRA PA Unavailable Unavailable RING, K MAHENDRA PA Unavailable Unavailable RING, K MAHENDRA PA Unavailable Unavailable RING, K MAHENDRA PA Unavailable Unavailable RING, K MAHENDRA PA Unavailable Unavailable RING, K MAHENDRA PA Unavailable Unavailable RING, K MAHENDRA PA Unavailable Unavailable Re-disclosure Warning The records that you are about to access may contain information from federally-assisted alcohol or drug abuse programs. If such information is present, then the following federally mandated warning applies: This information has been disclosed to you from records protected by federal confidentiality rules (42 CFR part 2). The federal rules prohibit you from making any further disclosure of this information unless further disclosure is expressly permitted by the written consent of the person to whom it pertains or as otherwise permitted by 42 CFR part 2. A general authorization for the release of medical or other information is NOT sufficient for this purpose. The Federal rules restrict any use of the information to criminally investigate or prosecute any alcohol or drug abuse patient.The records that you are about to access may contain highly sensitive health information, the redisclosure of which is protected by Article 27-F of the [facility] Public Health law. If you continue you may have access to information: Regarding HIV / AIDS; Provided by facilities licensed or operated by the [facility] Office of Mental Health; or Provided by the [facility] Office for People With Developmental Disabilities. If such information is present, then the following [facility] mandated warning applies: This information has been disclosed to you from confidential records which are protected by state law. State law prohibits you from making any further disclosure of this information without the specific written consent of the person to whom it pertains, or as otherwise permitted by law. Any unauthorized further disclosure in violation of state law may result in a fine or detention sentence or both. A general authorization for the release of medical or other information is NOT sufficient authorization for further disc losure. Family History Family Member Name Family Member Gender Family Member Status Date o f Status Description Data Source(s) Unknown Unknown Problem [facility] ([facility]) Unknown Unknown Problem [facility] ([facility]) Unknown Unknown Problem [facility] ([facility]) Encounters Encounter Providers Location Date Indications Data Source(s ) OFFICE OUTPATIENT VISIT 15 MINUTES Attender: TRACI ADAMES Physical Therapy 02/23/2021 03:00:00 PM EDT [facility] ([facility]) Outpatient Attender: Bashir Castillo 0 01/20/2021 08:40:00 AM EDT [facility] ([facility] ) OFFICE OUTPATIENT VISIT 15 MINUTES Attender: TRACI ADAMES Physical Therapy 01/05/2021 02:30:00 PM EDT [facility] ([facility]) Outpatient Attender: MAHENDRA [facility] 12/24/2020 02:10:00 PM EDT [facility] ([facility]) Outpatient Attender: YONNY ADAMES Physical Therapy 11/24/2020 0 2:40:00 PM EDT [facility] ([facility]) Office Visit Attender: YONNY ADAMES Physical Therapy 2020 09:15:00 AM EDT [facility] ([facility]) Outpatient Attender: Sofy Hadley [facility] 10/07/2020 01:50:00 PM EDT [facility] ([facility]) Office Visit Attender: YONNY ADAMES Physical Therapy 2020 08:30:00 AM EDT [facility] ([facility]) Office Visit Attender: YONNY ADAMES Physical Therapy 2020 08:45:00 AM EDT [facility] ([facility]) OFFICE OUTPATIENT VISIT 15 MINUTES Attender: YONNY ADAMES Phys ical Therapy 08/19/2020 12:15:00 PM EST [facility] ([facility]) Outpatient Attender: YONNY ADAMES Physical Therapy 08/07/2020 0 2:15:00 PM EST [facility] ([facility]) Outpatient Attender: Bashir Castillo 0 07/15/2020 08:20:00 AM EST [facility] ([facility] ) Outpatient Attender: TRACI valadez 06/03/2020 03:20:00 PM EST [facility] ([facility]) Medications Medication Brand Name Start Date Product Form Dose Route Admi nistrative Instructions Pharmacy Instructions Status Indications Reaction Description Data Source(s) 25 mg 03/04/2021 12:00:00 AM EDT tablet 90 TAKE ONE TABLET BY MOUTH EVERY DAY TAKE ONE TABLET BY MOUTH EVERY DAY SOLD: 03/09/2021 [facility] 10 mg 03/04/2021 12:00:00 AM EDT tablet 90 TAKE ONE TABLET BY MOUTH EVERY DAY TAKE ONE TABLET BY MOUTH EVERY DAY SOLD: 03/09/2021 [facility] 1.479-0.188- 0.225 gram 03/04/2021 12:00:00 AM EDT tablet 24 TAKE PER DOCTOR'S DIRECTIONS FOR BOWEL PREP TAKE PER DOCTOR'S DIRECTIONS FOR BOWEL PREP SOLD: 03/09/2021 [facility] 10 mg 03/04/2021 12:00:00 AM EDT tablet 90 TAKE ONE TABLET BY MOUTH EVERY DAY NEEDED TAKE ONE TABLET BY MOUTH EVERY DAY NEEDED SOLD: 03/09/2021 [facility] Sutab Sutab 03/03/2021 12:00:00 AM EDT active [facility] ([facility], ) Bisacodyl 5 MG Delayed Release Oral Tablet [Dulcolax] Dulcol ax 03/03/2021 12:00:00 AM EDT ORAL active M EDENT ([facility], ) 20 mg 12/24/2020 12:00:00 AM EDT tablet 8 TAKE ONE TABLET BY MOUTH TWO TIMES A DAY FOR 4 DAYS TAKE ONE TABLET BY MOUTH TWO TIMES A DAY FOR 4 DAYS SO LD: 12/24/2020 [facility] Prednisone 20 MG Oral Tablet Prednisone 12/24/2020 12:00:00 AM EDT ORAL active [facility] ([facility]) 25 mg 11/21/2020 12:00:00 AM EDT tablet 90 TAKE ONE TABLET BY MOUTH EVERY DAY TAKE ONE TABLET BY MOUTH EVERY DAY SOLD: 11/25/2020 [facility] 10 mg 11/21/2020 12:00:00 AM EDT tablet 90 TAKE ONE TABLET BY MOUTH EVERY DAY TAKE ONE TABLET BY MOUTH EVERY DAY SOLD: 11/25/2020 [facility] 10 mg 11/21/2020 12:00:00 AM EDT tablet 90 TAKE ONE TABLET BY MOUTH EVERY DAY NEEDED TAKE ONE TABLET BY MOUTH EVERY DAY NEEDED SOLD: 11/25/2020 [facility] Prednisone 20 MG Oral Tablet Prednisone 10/07/2020 12:00:00 AM EDT completed [facility] ([facility]) 10 mg 08/06/2020 12:00:00 AM EST tablet 90 TAKE ONE TABLET BY MOUTH EVERY DAY TAKE ONE TABLET BY MOUTH EVERY DAY SOLD: 08/07/2020 [facility] 25 mg 08/06/2020 12:00:00 AM EST tablet 90 TAKE ONE TABLET BY MOUTH EVERY DAY TAKE ONE TABLET BY MOUTH EVERY DAY SOLD: 08/07/2020 [facility] 10 mg 08/06/2020 12:00:00 AM EST tablet 90 TAKE ONE TABLET BY MOUTH EVERY DAY NEEDED TAKE ONE TABLET BY MOUTH EVERY DAY NEEDED SOLD: 08/07/2020 [facility] 10 mg 04/28/2020 12:00:00 AM EST tablet 90 TAKE 1 TABLET BY MOUTH EVERY DAY TAKE 1 TABLET BY MOUTH EVERY DAY SOLD: 04/29/2020 [facility] 25 mg 04/28/2020 12:00:00 AM EST tablet 90 TAKE ONE TABLET BY MOUTH EVERY DAY TAKE ONE TABLET BY MOUTH EVERY DAY SOLD: 04/29/2020 [facility] 10 mg 04/28/2020 12:00:00 AM EST tablet 90 TAKE 1 TABLET BY MOUTH DAILY NEEDED TAKE 1 TABLET BY MOUTH DAILY NEEDED SOLD: 04/29/2020 [facility] Insurance Providers Payer name Policy type / Coverage type Policy ID Covered libertarian ID Covered libertarian's relationship to donaldson Policy Donaldson Plan Information [facility]/Multi Medigap Part B [id number] [facility]/Multi Commercial Garret [id number] Family Depende nt Garret 5/6 [facility] Medicaid Commercial [id number] Self [id number] UMR [facility] [id number] [place]2 [id number] UMR O [id number] S [id number] [employer] [id number] [place]2 [id number] [employer] (Old) Medigap Part B [id number] Family Dependent [id number] [employer] (Old) Medigap Part B [id number] Family Dependent [id number] [employer] (Old) Medigap Part B [id number] Family Dependent [id number] Umr [place] [employer] Medigap Part B [id number] Family Dependent [id number] Umr [place] [employer] Medigap Part B [id number] Family Dependent [id number] [place] [employer] Medigap Part B [id number] Family Dependent [id number] [place] P[employer] Medigap Part B [id number] Family Dependent 910 [place] Commercial [id number] Family Dependent [employer] PPO O [id number] P [id number] UMR [facility] [id number] WI2 [id number] SELF PAY UNAVAILABLE SP UNAVAILA BLE SELF PAY ONLY [id number] SP [id number] Problems, Conditions, and Diagnoses Code Display Name Description Problem Type Effective Dates Data Source(s) [id number] Essential hypertension Essential hypertension Problem 02/15/2021 12:00:00 AM EDWard SWAN ([facility], ) Surgeries/Procedures Procedure Description Date Indications Data Source(s) OFFICE OUTPATIENT VISIT 15 MINUTES 02/23/2021 12:00:00 AM EDT [facility] ([facility] ) PHYSICIAN TELEPHONE EVALUATION 11-20 MIN 02/23/2021 12 :00:00 AM EDT [facility] ([facility] ) Physical Therapy Eval - Low Complexity 01/21/2021 12:0 0:00 AM EDT [facility] ([facility] ) OFFICE OUTPATIENT VISIT 25 MINUTES 01/20/2021 12:00:00 AM EDT [facility] ([facility]) OFFICE OUTPATIENT VISIT 15 MINUTES 01/05/2021 12:00:00 AM EDT [facility] ([facility] ) OFFICE OUTPATIENT VISIT 25 MINUTES 12/24/2020 12:00:00 AM EDT [facility] ([facility]) OFFICE OUTPATIENT VISIT 10 MINUTES 11/24/2020 12:00:00 AM EDT [facility] ([facility] ) OFFICE OUTPATIENT VISIT 15 MINUTES 11/24/2020 12:00:00 AM EDT [facility] ([facility] ) THERAPEUTIC PX 1/> AREAS EACH 15 MIN EXERCISES 12:00:00 AM EDT [facility] ([facility] ) THERAPEUTIC PX 1/> AREAS EACH 15 MIN EXERCISES 12:00:00 AM EDT [facility] ([facility] ) APPLICATION MODALITY 1/> AREAS HOT/COLD PACKS 11/12/19 12:00:00 AM EDT [facility] ([facility] ) THERAPEUTIC PX 1/> AREAS EACH 15 MIN EXERCISES 12:00:00 AM EDT [facility] ([facility] ) THERAPEUTIC PX 1/> AREAS EACH 15 MIN EXERCISES 12:00:00 AM EDT [facility] ([facility] ) THERAPEUTIC PX 1/> AREAS EACH 15 MIN EXERCISES 12:00:00 AM EDT [facility] ([facility] ) THERAPEUTIC PX 1/> AREAS EACH 15 MIN EXERCISES 12:00:00 AM EDT [facility] ([facility] ) THERAPEUTIC PX 1/> AREAS EACH 15 MIN EXERCISES 12:00:00 AM EDT [facility] ([facility] ) THERAPEUTIC PX 1/> AREAS EACH 15 MIN EXERCISES 12:00:00 AM EDT [facility] ([facility] ) THERAPEUTIC PX 1/> AREAS EACH 15 MIN EXERCISES 12:00:00 AM EDT [facility] ([facility] ) THERAPEUTIC PX 1/> AREAS EACH 15 MIN EXERCISES 12:00:00 AM EDT [facility] ([facility] ) RADIOLOGIC EXAM KNEE COMPLETE 4/MORE VIEWS 10/28/2020 12:00:00 AM EDT [facility] ([facility] ) THERAPEUTIC PX 1/> AREAS EACH 15 MIN EXERCISES 12:00:00 AM EDT [facility] ([facility] ) THERAPEUTIC PX 1/> AREAS EACH 15 MIN EXERCISES 12:00:00 AM EDT [facility] ([facility] ) THERAPEUTIC PX 1/> AREAS EACH 15 MIN EXERCISES 12:00:00 AM EDT [facility] ([facility] ) THERAPEUTIC PX 1/> AREAS EACH 15 MIN EXERCISES 12:00:00 AM EDT [facility] ([facility] ) THERAPEUTIC PX 1/> AREAS EACH 15 MIN EXERCISES 12:00:00 AM EDT [facility] ([facility] ) THERAPEUTIC PX 1/> AREAS EACH 15 MIN EXERCISES 12:00:00 AM EDT [facility] ([facility] ) APPLICATION MODALITY 1/> AREAS HOT/COLD PACKS 10/16/19 12:00:00 AM EDT [facility] ([facility] ) THERAPEUTIC PX 1/> AREAS EACH 15 MIN EXERCISES 12:00:00 AM EDT [facility] ([facility] ) THERAPEUTIC PX 1/> AREAS EACH 15 MIN EXERCISES 12:00:00 AM EDT [facility] ([facility] ) THERAPEUTIC PX 1/> AREAS EACH 15 MIN EXERCISES 12:00:00 AM EDT [facility] ([facility] ) THERAPEUTIC PX 1/> AREAS EACH 15 MIN EXERCISES 12:00:00 AM EDT [facility] ([facility] ) APPLICATION MODALITY 1/> AREAS HOT/COLD PACKS 10/09/19 12:00:00 AM EDT [facility] ([facility]) THERAPEUTIC PX 1/> AREAS EACH 15 MIN EXERCISES 12:00:00 AM EDT [facility] ([facility] ) THERAPEUTIC PX 1/> AREAS EACH 15 MIN EXERCISES 12:00:00 AM EDT [facility] ([facility] ) OFFICE OUTPATIENT VISIT 15 MINUTES 10/07/2020 12:00:00 AM EDT [facility] ([facility]) THERAPEUTIC PX 1/> AREAS EACH 15 MIN EXERCISES 12:00:00 AM EDT [facility] ([facility] ) THERAPEUTIC PX 1/> AREAS EACH 15 MIN EXERCISES 12:00:00 AM EDT [facility] ([facility] ) APPLICATION MODALITY 1/> AREAS HOT/COLD PACKS 10/02/19 12:00:00 AM EDT [facility] ([facility] ) THERAPEUTIC PX 1/> AREAS EACH 15 MIN EXERCISES 12:00:00 AM EDT [facility] ([facility] ) THERAPEUTIC PX 1/> AREAS EACH 15 MIN EXERCISES 12:00:00 AM EDT [facility] ([facility] ) RADIOLOGIC EXAM KNEE COMPLETE 4/MORE VIEWS 09/30/2020 12:00:00 AM EDT [facility] ([facility] ) APPLICATION MODALITY 1/> AREAS HOT/COLD PACKS 09/29/19 12:00:00 AM EDT [facility] ([facility] ) THERAPEUTIC PX 1/> AREAS EACH 15 MIN EXERCISES 12:00:00 AM EDT [facility] ([facility] ) THERAPEUTIC PX 1/> AREAS EACH 15 MIN EXERCISES 12:00:00 AM EDT [facility] ([facility] ) APPLICATION MODALITY 1/> AREAS HOT/COLD PACKS 09/24/19 12:00:00 AM EDT [facility] ([facility] ) THERAPEUTIC PX 1/> AREAS EACH 15 MIN EXERCISES 12:00:00 AM EDT [facility] ([facility] ) Physical Therapy Eval - Low Complexity 09/16/2020 12:0 0:00 AM EDT [facility] ([facility] ) RADIOLOGIC EXAM KNEE COMPLETE 4/MORE VIEWS 09/02/2020 12:00:00 AM [facility] REHABILITATION ([facility] ) FX Tibia Proximal W/O Manipulation 08/19/2020 12:00:00 AM EST [facility] RADIOLOGIC EXAM KNEE COMPLETE 4/MORE VIEWS 08/19/2020 12:00:00 AM EST [facility] ([facility] ) OFFICE OUTPATIENT VISIT 15 MINUTES 08/19/2020 12:00:00 AM EST [facility] ([facility]) OFFICE OUTPATIENT NEW 45 MINUTES 08/07/2020 12:00:00 A M EST [facility] ECG ROUTINE ECG W/LEAST 12 LDS W/I&R 07/15/2020 12:00: 00 AM EST [facility] ([facility]) Results ID Date Data Source [id number] 01/20/2021 08:59:00 AM EDT [facility]) Name Value Range Interpretation Code Description Data Lexi rce(s) Supporting Document(s) Cholesterol [Mass/volume] in Serum or Plasma 230 mg/dL 131-200 [facility]) Triglyceride [Mass/volume] in Serum or Plasma 84 mg/dL 30-150 [facility] ([facility]) Cholesterol in HDL [Mass/volume] in Serum or Plasma 61 mg/dL 35-60 [facility] Cholesterol in LDL [Mass/volume] in Serum or Plasma by calcu lation 152 CALC 50-159 [facility]) ID Date Data Source [id number] 01/20/2021 08:59:00 AM EDT [facility]) Name Value Range Interpretation Code Description Data Lexi rce(s) Supporting Document(s) Glucose [Mass/volume] in Serum or Plasma 96 mg/dL 74-99 [facility] ([facility]) 100-125 mg/dL PRE-DIABETES/FASTING >126 mg/dL DIABETES/FASTING Urea nitrogen [Mass/volume] in Serum or Plasma 20 mg/dL 7-18 [facility] ([facility]) Creatinine 1.2 mg/dL 0.6-1.3 [facility] Sodium [Moles/volume] in Serum or Plasma 140 meq/L 136-145 [facility] ([facility]) Potassium [Moles/volume] in Serum or Plasma 4.0 meq/L 3.5-5.1 [facility] ([facility]) Chloride [Moles/volume] in Serum or Plasma 102 meq/L 98-107 [facility] ([facility]) Carbon dioxide, total [Moles/volume] in Serum or Plasma 31 meq/L 21 -32 [facility] ([facility]) Calcium [Mass/volume] in Serum or Plasma 9.5 mg/dL 8.5-10.1 [facility] ([facility]) Alkaline phosphatase isoenzyme [Units/volume] in Serum or Pl asma 61 mg/dL 46-116 [facility] ([facility]) Total Bilirubin 0.5 mg/dL 0.2-1.0 [facility] ([facility]) Aspartate aminotransferase [Enzymatic activity/volume] in Serum or Plasma 27 U/L 15-37 [facility] ([facility] ) Alanine aminotransferase [Enzymatic activity/volume] in Seru m or Plasma 50 U/L 12-78 [facility] ([facility]) Albumin [Mass/volume] in Serum or Plasma 4.0 g/dL 3.4-5.0 [facility] ([facility]) Proteinase 3 Ab [Units/volume] in Serum 7.3 g/dL 6.4-8.2 [facility] ([facility]) A/G Ratio 1.21 CALC 1.00-1.90 [facility] ([facility]) Glomerular filtration rate/1.73 sq M pre dicted among non-blacks [Volume Rate/Area] in Serum or Plasma by Creatinine-based formula (MDRD) Laboratory test result [facility] ([facility] Glomerular filtration rate/1.73 sq M pre dicted among blacks [Volume Rate/Area] in Serum or Plasma by Creatinine-based formula (MDRD) Laboratory test result [facility] ([place] [facility]) <content>CHRONIC KIDNEY DISEASE STAGING PER NKF</content>
<content></content>
<content>STAGE I & II GFR >= 60 NORMAL TO MILDLY DECREASED</content>
<content>STAGE III GFR 30-59 MODERATELY DECREASED</content>
<content>STAGE IV GFR 15-29 SEVERELY DECREASED</content>
<content>STAGE V GFR <15 VERY LITTLE GFR LEFT</content>
<content>ESRD GFR <15 ON ELECTROPLATER AUTOMATIC</content>
<content></content> ID Date Data Source [id number] 01/20/2021 08:59:00 AM EDT [facility] ([facility]) Name Value Range Interpretation Code Description Data Lexi rce(s) Supporting Document(s) Leukocytes [#/volume] in Blood by Automated count 4.5 x10*3/UL 4.1-10 .9 [facility] ([facility]) Erythrocytes [#/volume] in Blood by Automated count 4.89 x10*6/UL 4.2 0-6.30 [facility] ([facility]) Hemoglobin [Mass/volume] in Blood 15.0 g/dL 12.0-18.0 [facility] ([facility]) Hematocrit [Volume Fraction] of Blood by Automated count 43.7 % 3 7.0-51.0 [facility] ([facility]) MCV 89.3 fL 80.0-97.0 [facility] [facility] MCH 30.8 pg 26.0-32.0 [facility] [facility] MCHC 34.4 g/dL 31.0-38.0 [facility] ([place] [facility]) Erythrocyte distribution width [Ratio] by Automated count 13.0 % 11.6-13.7 [facility] ([facility]) Platelets [#/volume] in Blood by Automated count 307 x10*3/UL 140-440 [facility] ([facility]) MPV 8.2 FL 7.8-11.0 [facility] [facility] Lymph % 34.1 % 10.0-58.5 [facility] [facility] Mid % 6.5 % 1.7-9.3 [facility] [facility] Neut % 59.4 % 37.0-92.0 [facility] [facility] Lymph # 1.5 x10*3/UL 0.6-4.1 [facility] ([facility]) Mid # 0.3 x10*3/UL 0.1-0.6 [facility] ([facility]) Neut # 2.7 x10*3/UL 2.0-7.8 [facility]) ID Date Data Source [id number] 07/15/2020 10:01:00 AM EST [facility] ([facility]) Name Value Range Interpretation Code Description Data Lexi rce(s) Supporting Document(s) Cholesterol [Mass/volume] in Serum or Plasma 198 mg/dL 131-200 [facility] ([facility]) Cholesterol in HDL [Mass/volume] in Serum or Plasma 58 mg/dL 35-60 [facility] ([facility]) Triglyceride [Mass/volume] in Serum or Plasma 66 mg/dL 30-150 [facility] ([place] [facility]) Cholesterol in LDL [Mass/volume] in Serum or Plasma by calcu lation 127 CALC 50-159 [facility] ID Date Data Source [id number] 07/15/2020 10:01:00 AM EST [facility] ([facility]) Name Value Range Interpretation Code Description Data Lexi rce(s) Supporting Document(s) Hemoglobin A1c/Hemoglobin.total in Blood 5.7 % [facility] ([facility]) Lab Result Notes: Pre-Diabetes 5.7 - 6.4 % Diabetes = or > 6.5% Glucose mean value [Mass/volume] in Blood Estimated fr om glycated hemoglobin 117 mg/dL 60-110 [facility] ([facility] ) ID Date Data Source [id number] 07/15/2020 10:01:00 AM EST [facility] ([facility]) Name Value Range Interpretation Code Description Data Lexi rce(s) Supporting Document(s) Erythrocytes [#/volume] in Blood by Automated count 4.74 x10*6/UL 4.2 0-6.30 [facility] [facility] Hemoglobin [Mass/volume] in Blood 14.7 g/dL 12.0-18.0 [facility] ([facility] [facility]) Leukocytes [#/volume] in Blood by Automated count 4.0 x10*3/UL 4.1-10 .9 [facility] ([facility]) MCV 88.6 fL 80.0-97.0 [facility] ([place] [facility]) MCH 31.0 pg 26.0-32.0 [facility] ([facility]) Hematocrit [Volume Fraction] of Blood by Automated count 42.0 % 3 7.0-51.0 [facility] ([facility] [facility]) Platelets [#/volume] in Blood by Automated count 286 x10*3/UL 140-440 [facility] ([place] [facility]) Erythrocyte distribution width [Ratio] by Automated count 13.0 % 11.6-13.7 [facility] ([place] [facility]) MPV 9.0 FL 7.8-11.0 [facility] ([facility]) MCHC 35.0 g/dL 31.0-38.0 [facility] ([facility]) Mid % 6.5 % 1.7-9.3 [facility] ([facility]) Neut % 63.7 % 37.0-92.0 [facility] ([facility]) Lymph % 29.8 % 10.0-58.5 [facility] ([facility]) Neut # 2.5 x10*3/UL 2.0-7.8 [facility] ([facility]) Lymph # 1.2 x10*3/UL 0.6-4.1 [facility] ([facility]) Mid # 0.3 x10*3/UL 0.1-0.6 [facility] ([facility]) ID Date Data Source [id number] 06/11/2020 10:30:00 PM EST [facility] ([facility]) Name Value Range Interpretation Code Description Data Lexi rce(s) Supporting Document(s) Appearance, Urine RFX Laboratory test result [facility] ([facility]) Specific Immaculata Ur Auto RFX 1.026 1.002-1.035 [facility] ([facility]) PH,Urine RFX 5.0 units 5.0-9.0 [facility] ([facility]) Color, Urine RFX Laboratory test result [facility] ([facility] [facility]) Ketone, Urine Auto RFX Laboratory test result [facility] ([facility]) Protein, Urine Auto RFX Laboratory test result [facility] ([facility]) Glucose, Urine (Ua) Auto RFX Laboratory test result [facility] ([facility]) Nitrite, Urine Auto RFX Laboratory test result [facility] ([facility]) Urobilinogen, Urine Auto RFX 0.2 mg/dL 0.0-2.0 [facility] ([facility]) Bilirubin, Urine Auto RFX Laboratory test result [facility] ([facility]) Leukocyte Esterase Ur Auto RFX Laboratory test result [facility] ([facility]) Blood, Urine Blood RFX Laboratory test result [facility] ([facility]) WBC, Urine Auto RFX 10 /HPF 0-3 [facility] RBC, Urine Auto RFX 0 /HPF 0-3 [facility] Bacteria, Urine Auto RFX Laboratory test result [facility] ([facility]) Squam Epithelial Cell Ur Aurfx 0 /HPF 0-6 [facility]) Mucus, Urine RFX Laboratory test result [facility] ([facility]) Hyaline Cast, Urine Auto RFX 0 /LPF 0-1 M [facility] ([facility]) ID Date Data Source [id number] 06/11/2020 08:59:00 PM EST [facility] Name Value Range Interpretation Code Description Data Lexi rce(s) Supporting Document(s) Ferritin [Mass/volume] in Serum or Plasma 507 ng/mL 26-388 [facility] ([facility]) Lactate dehydrogenase [Enzymatic activit y/volume] in Serum or Plasma by Lactate to pyruvate reaction 211 U/L 87-241 [facility] ([facility]) C reactive protein [Mass/volume] in Serum or Plasma by High sensitivity method 1.90 mg/dL 0.00-0.30 [facility] ([facility] ) Bacteria identified in Blood by Culture Laboratory test result [facility] ([facility]) No growth after 72 hours . All specimens observed for 5 days. Results final at that time. No growth after 48 hours . All specimens observed for 5 days. Results final at that time. No growth after 24 hours . All specimens observed for 5 days. Results final at that time. NO GROWTH AFTER 5 DAYS ID Date Data Source [id number] 06/11/2020 08:59:00 PM EST [facility] Name Value Range Interpretation Code Description Data Lexi rce(s) Supporting Document(s) CPK Creatine Phosphokinase 183 U/L 39-308 [facility] ([facility]) CK-MB Value Mass Laboratory test result [facility]) Troponin I Laboratory test result [facility] ([facility]) <content>Troponin I Reference Interval f or Siemens [place] LOCI:</content>
<content></content>
<content>99th Percentile= 0.00-0.045 ng/ml</content>
<content></content>
<content>Risk Stratification:</content>
<content><= 0.10 ng/ml Decreased Risk for Adverse Clinical</content>
<content>Events.</content>
<content>0.10-1.50 ng/ml Increased Risk for Adverse Clinical</content>
<content>Events. Evaluation of additional</content>
<content>criterion and/or repeat testing in 2-6</content>
<content>hours is suggested to rule out myocardial</content>
<content>damage.</content>
<content>>= 1.50 ng/ml Indicative of Myocardial Injury.</content>
<content></content> MB/CK Relative Index 0.55 [facility] ([facility]) <content>DIAGNOSIS CRITERIA</content>
<content>MMB ng/ml Relative Index (RI)</content>
<content>NON-AMI < or = 5 N/A</content>
<content>MOONEY ZONE > 5 < or = 4</content>
<content>AMI > 5 > 4</content>
<content></content> ID Date Data Source [id number] 06/11/2020 08:59:00 PM EST [facility] ([facility]) Name Value Range Interpretation Code Description Data Lexi e(s) Supporting Document(s) Blood Urea Nitrogen 17 mg/dL 7-18 [facility] ([facility]) Glucose, Fasting 100 mg/dL 70-100 [facility] ([facility]) Creatinine For GFR 1.01 mg/dL 0.70-1.30 [facility] ([facility]) Sodium Level 136 meq/L 136-145 [facility] ([facility]) Glomerular Filtration Rate Laboratory test result [facility] ([place] [facility]) <content>Units are mL/min/1.73 m2</content>
<content></content>
<content>Chronic Kidney Disease Staging per NKF:</content>
<content></content>
<content>Stage I & II GFR >=60 Normal to Mildly Decreased</content>
<content>Stage III GFR 30- 59 Moderately Decreased</content>
<content>Stage IV GFR 15-29 Severely Decreased</content>
<content>Stage V GFR <15 Very Little GFR Left</content>
<content>ESRD GFR <15 on ELECTROPLATER AUTOMATIC</content>
<content></content> Carbon Dioxide Level 30 meq/L 21-32 [facility] ([facility]) Chloride Level 99 meq/L 98-107 [facility] ([facility]) Potassium Serum 3.0 meq/L 3.5-5.1 [facility] ([facility]) Ast/Sgot 38 U/L 7-37 [facility] ([place] [facility]) Anion Gap 7 meq/L 8-16 [facility] ([place] [facility]) Calcium Level 8.2 mg/dL 8.5-10.1 [facility] ([facility]) Bilirubin,Total 0.3 mg/dL 0.2-1.0 [facility] ([facility]) Alt/SGPT 65 U/L 12-78 [facility] ([place] [facility]) Alkaline Phosphatase 51 U/L 45-117 [facility] ([facility]) Total Protein 6.6 GM/DL 6.4-8.2 [facility] ([facility]) Albumin/Globulin Ratio 1.1 [facility] ([facility]) Albumin 3.5 GM/DL 3.2-5.2 [facility] ([place] [facility]) ID Date Data Source [id number] 06/11/2020 08:59:00 PM EST [facility] ([facility]) Name Value Range Interpretation Code Description Data Lexi rce(s) Supporting Document(s) Fibrin D-dimer FEU [Mass/volume] in Platelet poor plasma 406.88 ng/mL [facility] ([facility]) Lactate [Mass/volume] in Serum or Plasma 0.9 mmol/L 0.4-2.0 [facility] ([facility]) Y/N query for Sepsis Lactate Rule: Y ID Date Data Source [id number] 06/11/2020 08:59:00 PM EST [facility] ([facility]) Name Value Range Interpretation Code Description Data Lexi rce(s) Supporting Document(s) Red Blood Count 4.83 10 4.30-6.10 [facility] ([facility]) White Blood Count 2.3 10 4.0-10.0 [facility] ([facility]) Hemoglobin 14.6 g/dL 13.5-17.5 [facility] ([place] [facility] Hematocrit 42.4 % 42.0-52.0 [facility] ([facility] Mean Corpuscular Hemoglobin 30.2 pg 27.0-33.0 [place] [facility] ([facility]) Mean Corpuscular Volume 87.8 fl 80.0-96.0 [facility] ([facility]) Red Cell Distribution Width 11.8 % 11.5-14.5 [place] [facility] ([facility]) Platelet Count, Automated 190 10 150-450 [facility] NT ([facility]) Neutrophils % 49.2 % 36.0-66.0 [facility] ([facility]) Mean Corpuscular HGB Conc 34.4 g/dL 32.0-36.5 MED[facility] NT ([facility]) Eos % 0.4 % 0.0-3.0 [facility] ([place] [facility]) Lymph % 41.4 % 24.0-44.0 [facility] ([place] [facility]) [place] % 8.2 % 0.0-5.0 [facility] ([place] [facility]) Immature Granulocyte % 0.4 % 0-3.0 [facility] ([facility]) Baso % 0.4 % 0.0-1.0 [facility] ([place] [facility]) Nucleated Red Blood Cell % 0.0 % 0-0 [facility] ([facility]) Neutrophils # 1.1 10 1.5-8.5 [facility] ([facility]) [place] # 0.2 10 0.0-0.8 [facility] ([place] [facility]) Lymph # 1.0 10 1.5-5.0 [facility] ([place] [facility]) Baso # 0.0 10 0.0-0.2 [facility] ([place] [facility]) Eos # 0.0 10 0.0-0.5 [facility] [facility] ID Date Data Source [id number] 06/03/2020 12:00:00 AM EST [facility] Name Value Range Interpretation Code Description Data Lexi rce(s) Supporting Document(s) SARS-CoV2 Rapid Antigen [facility] This lab was [facility] by [facility] Procedure Social History No Information Vital Signs ID Date Data Source UNK Name Value Range Interpretation Code Description Data Source(s) Systolic blood pressure 142 mm[Hg] 142 mm[Hg] [facility] Diastolic blood pressure 92 mm[Hg] 92 mm[Hg] [facility]) Body height 73 [in_i] 73 [in_i] [facility] ([facility]) 6'1" Body weight 227.00 [lb_av] 227.00 [lb_av] [facility] T ([facility]) Body mass index (BMI) [Ratio] 29.9 kg/m2 29.9 k g/m2 [facility] ([facility]) [place] body weight 184 [lb_av] 184 [lb_av] [facility] T ([facility]) Body weight 102.967 kg 102.967 kg [facility] ([facility]) Body surface area Derived from formula 2.27 m2 2.27 m2 [facility] ([facility]) Heart rate 70 /min 70 /min [facility] ([facility]) Body height 71.50 [in_i] 71.50 [in_i] [facility] ([facility]) 5'11.50" Body weight 224.00 [lb_av] 224.00 [lb_av] MED[facility] T ([facility]) Body mass index (BMI) [Ratio] 30.8 kg/m2 30.8 k g/m2 [facility] ([facility]) Systolic blood pressure 110 mm[Hg] 110 mm[Hg] M [facility] ([facility]) Diastolic blood pressure 68 mm[Hg] 68 mm[Hg] [facility] ([facility]) Respiratory rate 16 /min 16 /min [facility] ( [place] [facility]) Oxygen saturation in Arterial blood by Pulse oximetry 98 % 98 % [facility] ([facility], [facility]) Body temperature 98.5 [degF] 98.5 [degF] [facility] ([facility], [facility]) Body weight 220.00 [lb_av] 220.00 [lb_av] MED[facility] T ([facility], [facility]) Body height 73 [in_i] 73 [in_i] [facility] ([facility], [facility]) 6'1" Body mass index (BMI) [Ratio] 29.0 kg/m2 29.0 k g/m2 [facility] ([facility], [facility]) Systolic blood pressure 138 mm[Hg] 138 mm[Hg] [facility] ([facility]) Diastolic blood pressure 91 mm[Hg] 91 mm[Hg] [facility] ([facility], [facility]) Heart rate 77 /min 77 /min [facility] ([facility], [facility]) Systolic blood pressure 142 mm[Hg] 142 mm[Hg] [facility] ([facility]) Diastolic blood pressure 99 mm[Hg] 99 mm[Hg] [facility] ([facility], [facility]) Heart rate 73 /min 73 /min [facility] ([facility], [facility]) Respiratory rate 13 /min 13 /min [facility] ( [place] [facility], [facility]) Oxygen saturation in Arterial blood by Pulse oximetry 98 % 98 % [facility] ([facility]) Body temperature 97.1 [degF] 97.1 [degF] [facility] ([place] [facility], [facility]) Body weight 220.00 [lb_av] 220.00 [lb_av] MED[facility] T ([place] [facility], [facility]) Body height 73 [in_i] 73 [in_i] [facility] ([facility]) 6'1" Body mass index (BMI) [Ratio] 29.0 kg/m2 29.0 k g/m2 [facility] ([facility]) Body temperature 97.8 [degF] 97.8 [degF] [facility] ([facility] ) Body weight 220.00 [lb_av] 220.00 [lb_av] [facility] T ([facility] ) Body mass index (BMI) [Ratio] 29.0 kg/m2 29.0 k g/m2 [facility] ([facility] ) Body height 73 [in_i] 73 [in_i] [facility] ([facility] ) 6'1" Systolic blood pressure 110 mm[Hg] 110 mm[Hg] [facility] ([facility]) Diastolic blood pressure 72 mm[Hg] 72 mm[Hg] [facility] ([facility]) Heart rate 68 /min 68 /min [facility] ([facility]) Body height 71.50 [in_i] 71.50 [in_i] [facility] ([facility]) 5'11.50" Body weight 217.00 [lb_av] 217.00 [lb_av] [facility] T ([facility]) Body mass index (BMI) [Ratio] 29.8 kg/m2 29.8 k g/m2 [facility] ([facility]) Systolic blood pressure 134 mm[Hg] 134 mm[Hg] M [facility]) Diastolic blood pressure 88 mm[Hg] 88 mm[Hg] [facility] ([facility]) Heart rate 110 /min 110 /min [facility] ([facility], [facility]) Respiratory rate 10 /min 10 /min [facility] ( [facility]) Oxygen saturation in Arterial blood by Pulse oximetry 97 % 97 % [facility] ([facility]) Body temperature 98.8 [degF] 98.8 [degF] [facility] ([facility], [facility]) Body weight 224.00 [lb_av] 224.00 [lb_av] MED[facility] T ([facility], [facility]) Body height 72 [in_i] 72 [in_i] [facility] ([facility]) 6'0" Body mass index (BMI) [Ratio] 30.4 kg/m2 30.4 k g/m2 [facility] ([facility])
[2021-04-16] MEDS ORDERED: propofoL 200 MG/20 ML VIAL As Ordered ONE (09:44)
--- NOTE | 2021-04-16 10:08 | ROOR ---
Patient Name: Adonis Phan Procedure Date: 04/16/2021 9:23 AM Date of : 1975 Age: 45 Room: [facility] Gender: Male Note Status: Finalized Procedure: Colonoscopy Indications: Screening for colorectal malignant neoplasm Providers: Eloy Garrido MD Referring MD: SALEEM RENTERIA JR, MD Requesting Provider: Medicines: Monitored Anesthesia Care Complications: No immediate complications. Procedure: Pre-Anesthesia Assessment: - Prior to the procedure, a History and Physical was performed, and patient medications and allergies were reviewed. The patient is competent. The risks and benefits of the procedure and the sedation options and risks were discussed with the patient. All questions were answered and informed consent was obtained. Patient identification and proposed procedure were verified by the physician, the nurse and the anesthesiologist in the procedure room. Mental Status Examination: normal. Airway Examination: normal oropharyngeal airway and neck mobility. Respiratory Examination: clear to auscultation. CV Examination: normal. Prophylactic Antibiotics: The patient does not require prophylactic antibiotics. Prior Anticoagulants: The patient has taken no previous anticoagulant or antiplatelet agents. ASA Grade Assessment: II - A patient with mild systemic disease. After reviewing the risks and benefits, the patient was deemed in satisfactory condition to undergo the procedure. The anesthesia plan was to use monitored anesthesia care (MAC). Immediately prior to administration of medications, the patient was re-assessed for adequacy to receive sedatives. The heart rate, respiratory rate, oxygen saturations, blood pressure, adequacy of pulmonary ventilation, and response to care were monitored throughout the procedure. The physical status of the patient was re-assessed after the procedure. The Colonoscope was introduced through the anus and advanced to the terminal ileum, with identification of the appendiceal orifice and IC valve. The colonoscopy was performed without difficulty. The patient tolerated the procedure well. The quality of the bowel preparation was good. The terminal ileum, ileocecal valve, appendiceal orifice, and rectum were photographed. Scope insertion time was 4 minutes. Scope withdrawal time was 10 minutes. The total duration of the procedure was 14 minutes. Findings: The perianal and digital rectal examinations were normal. The terminal ileum appeared normal. A 3 mm polyp was found in the ascending colon. The polyp was sessile. The polyp was removed with a jumbo cold forceps. Resection and retrieval were complete. Verification of patient identification for the specimen was done by the physician and nurse using the patient's name, date and medical record number. Estimated blood loss was minimal. Non-bleeding external and internal hemorrhoids were found during retroflexion. The hemorrhoids were medium-sized. Impression: - The examined portion of the ileum was normal. - One 3 mm polyp in the ascending colon, removed with a jumbo cold forceps. Resected and retrieved. - Non-bleeding external and internal hemorrhoids. Recommendation: - Patient has a contact number available for emergencies. The signs and symptoms of potential delayed complications were discussed with the patient. Return to normal activities tomorrow. Written discharge instructions were provided to the patient. - High fiber diet. - Continue present medications. - Await pathology results. - Repeat colonoscopy in 10 years for surveillance based on pathology results. - Telephone GI clinic for pathology results in 2 weeks. - Return to GI clinic if persistent symptoms or new symptoms. - Return to primary care physician. Procedure Code(s): --- Professional --- 47640, Colonoscopy, flexible; with biopsy, single or multiple Diagnosis Code(s): --- Professional --- Z12.11, Encounter for screening for malignant neoplasm of colon K64.8, Other hemorrhoids K63.5, Polyp of colon CPT copyright 2019 [employer]. All rights reserved. The codes documented in this report are preliminary and upon lime kil[employer] worker review may be revised to meet current compliance requirements. Eloy Garrido MD Eloy Garrido MD 04/16/2021 10:08:08 AM Electronically signed by Eloy Garrido MD Number of Addenda: 0 Note Initiated On: 04/16/2021 9:23 AM Estimated Blood Loss: Estimated blood loss was minimal.
[2021-04-16 10:30] VITALS: BP 112/64
== END 2021-04-16 10:55 | disposition home or self-care (01) ==
LOC: M OPP 08:22 → MERGE 13:30
PROVIDERS: ATTEND Internal Medicine Gastroenterology
DX: Z12.11 Encounter for screening for malignant neoplasm of colon (principal); Z80.0 Family history of malignant neoplasm of digestive organs; K63.5 Polyp of colon; K64.8 Other hemorrhoids; Z79.899 Other long term (current) drug therapy